=== PATIENT | male | born 1955 | race Caucasian/White ===

== ENCOUNTER 2018-06-12 11:35 | Emergency (ER) | payer SELFPAY ==
[2018-06-12 12:54] LABS: ADD MAN DIFF? NO
[2018-06-12 12:58] LABS: BASO # 0.1 x10^3/uL (0.0-0.2); BASO % 1 % (0-3); EOS % 0 % (0-3); HEMATOCRIT 45.8 % (39.0-53.0); HEMOGLOBIN 16.3 g/dL (13.0-17.5); LYMPH # 0.9 x10^3/uL (1.0-4.8); LYMPH % 12 % (24-48); MEAN CORPUSCULAR HEMOGLOBIN 35 pg (25-35); MEAN CORPUSCULAR HGB CONC 36 g/dL (31-37); MEAN CORPUSCULAR VOLUME 97 fL (79-100); MONO % 13 % (0-9); NEUT # 5.6 x10^3uL (1.8-7.7); NEUT % 75 % (31-73); PLATELET COUNT 168 x10^3/uL (140-400); RED BLOOD COUNT 4.74 x10^6/uL (4.30-5.70); RED CELL DISTRIBUTION WIDTH 15.3 % (11.5-14.5); WHITE BLOOD COUNT 7.5 x10^3/uL (4.0-11.0)
[2018-06-12] MEDS: LABETALOL 20 MG/4 ML DISP.SYRIN. IVP (12:59)
[2018-06-12 13:05] LABS: ANION GAP 9 (6-14); BLOOD UREA NITROGEN 18 mg/dL (8-26); CALCIUM 9.7 mg/dL (8.5-10.1); CARBON DIOXIDE 27 mmol/L (21-32); CHLORIDE 99 mmol/L (98-107); CREATININE 1.4 mg/dL (0.7-1.3); GFR 51.7; GLUCOSE 103 mg/dL (70-99); POTASSIUM 3.9 mmol/L (3.5-5.1); SODIUM 135 mmol/L (136-145)
[2018-06-12 13:06] LABS: MAGNESIUM 1.8 mg/dL (1.8-2.4)
[2018-06-12 13:13] LABS: TROPONINI < 0.017 ng/mL (0.000-0.055)
[2018-06-12 13:19] LABS: NT-PRO BNP 342 pg/mL (0-124)
[2018-06-12 13:19] LABS: CKMB INDEX 1.1 % (0-4); CKMB MASS 1.9 ng/mL (0.0-3.6); CREATINE KINASE 169 U/L (39-308)
== END 2018-06-12 13:57 | disposition home or self-care (01) ==
LOC: ER 11:35
DX: I10 Essential (primary) hypertension (principal); J20.9 Acute bronchitis, unspecified; J06.9 Acute upper respiratory infection, unspecified; F17.200 Nicotine dependence, unspecified, uncomplicated; F10.10 Alcohol abuse, uncomplicated; Y90.9 Presence of alcohol in blood, level not specified; Z90.89 Acquired absence of other organs; Z98.890 Other specified postprocedural states; Z88.8 Allergy status to other drugs, medicaments and biological substances; Z88.0 Allergy status to penicillin
CPT/HCPCS: 36415; 71045; 80048; 82553; 83735; 83880; 84484; 85025; 93005; 96374; 99285-25; J3490

== ENCOUNTER 2019-02-13 13:37 | Inpatient (IN) | payer SELFPAY ==
[2019-02-13] VITALS (9 sets, daily range): BP systolic 129–202; BP diastolic 82–112
[~2019-02-13] VITALS: Ht 175.3 cm; Wt 107.0 kg
[~2019-02-13 13:37] MED LIST: BENZ100C PO; BYSTOLIC5 MG PO; PRED50TA PO; VENTOLIN HFA18 GM INH
[2019-02-13] MEDS ORDERED: FUROSEMIDE 40 MG/4 ML VIAL. IVP ONE (13:45)
[2019-02-13] MEDS ORDERED: methylPREDNISolone SOD SUCC PF 125 MG/2 ML VIAL. IV ONE (13:45)
[2019-02-13] MEDS ORDERED: IPRATRPIUM/ALBUTEROL 0.5/2.5MG 3 ML NEBU. NEB ONE (13:45)
[2019-02-13] MEDS ORDERED: ADENOSINE 6 MG/2 ML VIAL. IV ONE ×3 (14:00→14:30)
[2019-02-13 14:13] LABS: BASO # 0.1 x10^3/uL (0.0-0.2); BASO % 1 % (0-3); EOS % 1 % (0-3); HEMATOCRIT 46.7 % (39.0-53.0); LYMPH # 1.2 x10^3/uL (1.0-4.8); LYMPH % 16 % (24-48); MEAN CORPUSCULAR HEMOGLOBIN 34 pg (25-35); MEAN CORPUSCULAR HGB CONC 34 g/dL (31-37); MEAN CORPUSCULAR VOLUME 98 fL (79-100); MONO # 0.7 x10^3/uL (0.0-1.1); MONO % 8 % (0-9); NEUT # 5.8 x10^3uL (1.8-7.7); NEUT % 74 % (31-73); PLATELET COUNT 230 x10^3/uL (140-400); RED BLOOD COUNT 4.78 x10^6/uL (4.30-5.70); RED CELL DISTRIBUTION WIDTH 15.2 % (11.5-14.5); WHITE BLOOD COUNT 7.8 x10^3/uL (4.0-11.0)
--- NOTE | 2019-02-13 14:21 | RAD ---
Single view of the chest. 02/13/2019 1:41 PM Indication: SHORTNESS OF AIR Comparison: Chest radiograph May 13, 2018 Findings: Diffuse interstitial coarsening is noted. This could represent viral or atypical infection. Interstitial edema is also possible. Heart is mildly enlarged there is central vascular congestion. No pneumothorax is seen. No significant effusion is identified. The bony thorax is grossly intact. IMPRESSION: Cardiomegaly and mild central vascular congestion. Diffuse interstitial coarsening is noted. Findings suggest pulmonary edema. An atypical or viral infectious process also possible. Electronically signed by: Aleks Redmond MD (02/13/2019 2:18 PM) [id number]
[2019-02-13 14:27] LABS: BASE EXCESS COOX -4 mmol/L (-3-3); HCO3 COOX 19 mmol/L (21-28); METHEMOGLOBIN 0.2 % (0.0-1.9); OXYHEMOGLOBIN 84.4 %; PCO2 COOX 30 mmHg (35-46); PO2 COOX 52 mmHg (65-108); SAT O2 COOX 89 % (92-99)
[2019-02-13 14:29] LABS: CREATININE 1.6 mg/dL (0.7-1.3); GFR 44.2; POTASSIUM 3.9 mmol/L (3.5-5.1)
--- NOTE | 2019-02-13 14:29 | PHYS DOC ---
Past Medical History Past Medical History: Hypertension Past Surgical History: Appendectomy Additional Past Surgical Histo: knee surgery Additional Information: more than 1 pack/day Alcohol Use: Heavy Additional Information: daily drinker Drug Use: None Adult General Chief Complaint Chief Complaint: SHORTNESS OF BREATH HPI HPI Patient is a 63 year old presented to ER today for evaluation of trouble breathing, he has this symptom for about 8 days. Symptoms get worse over the last few days, shortness of air is worse with exertion. Patient also has clear productive cough , no fever. Patient is a heavy smoker, no diagnose of COPD, no history of CAD, HE IS NOT ON ANY OXYGEN AT HOME. Review of Systems Review of Systems Constitutional: Denies fever or chills [] Eyes: Denies change in visual acuity, redness, or eye pain [] HENT: Denies nasal congestion or sore throat [] Respiratory: Positive for cough and shortness of breath [] Cardiovascular: No additional information not addressed in HPI [] GI: Denies abdominal pain, nausea, vomiting, bloody stools or diarrhea [] : Denies dysuria or hematuria [] Musculoskeletal: Denies back pain or joint pain [] Integument: Denies rash or skin lesions [] Neurologic: Denies headache, focal weakness or sensory changes [] Endocrine: Denies polyuria or polydipsia [] All other systems were reviewed and found to be within normal limits, except as documented in this note. Current Medications Current Medications Current Medications Medications (Trade) Dose Ordered Sig/Batsheva Start Time Stop Time Status Last Admin Dose Admin Acetaminophen (Tylenol) 650 mg PRN Q4HRS PRN 02/13/19 15:15 UNV Adenosine (Adenocard) 12 mg 1X ONCE 02/13/19 14:30 02/13/19 14:32 DC 02/13/19 14:34 12 MG Al Hydroxide/Mg Hydroxide (Mylanta Plus Xs) 30 ml PRN DAILY PRN 02/13/19 15:15 UNV Albuterol/ Ipratropium (Duoneb) 3 ml RTQID 02/13/19 16:00 02/14/19 15:59 UNV Bumetanide (Bumex) 2 mg BID 02/13/19 15:15 UNV Diltiazem HCl (Cardizem Iv Push) 20 mg 1X ONCE 02/13/19 14:30 02/13/19 14:32 DC 02/13/19 14:33 20 MG Diltiazem HCl 125 mg/Dextrose 125 ml @ 5 mls/hr CONT PRN 02/13/19 14:30 02/13/19 14:57 5 MLS/HR Docusate Sodium (Colace) 100 mg PRN BID PRN 02/13/19 15:15 UNV Enoxaparin Sodium (Lovenox 40mg Syringe) 40 mg Q24H 02/13/19 15:15 UNV Furosemide (Lasix) 40 mg 1X ONCE 02/13/19 13:45 02/13/19 13:46 DC 02/13/19 14:08 40 MG Guaifenesin (Robitussin) 200 mg PRN Q4HRS PRN 02/13/19 15:15 UNV Lorazepam (Ativan) 0.5 mg PRN Q4HRS PRN 02/13/19 15:15 UNV Methylprednisolone Sodium Succinate (SOLU-Medrol 125MG VIAL) 125 mg 1X ONCE 02/13/19 13:45 02/13/19 13:46 DC 02/13/19 14:03 125 MG Nitroglycerin (Nitro-Dur) 1 patch DAILY 02/14/19 09:00 UNV Ondansetron HCl (Zofran) 4 mg PRN Q8HRS PRN 02/13/19 15:15 02/14/19 15:14 UNV Sodium Chloride (Normal Saline Flush) 3 ml QSHIFT PRN 02/13/19 15:15 UNV Zolpidem Tartrate (Ambien) 5 mg PRN QHS PRN 02/13/19 15:15 UNV Allergies Allergies Allergies Coded Allergies Type Severity Reaction Last Updated Verified Penicillins Allergy Unknown hives 06/12/18 Yes lisinopril Allergy Unknown swelling of the tongue 06/12/18 Yes Physical Exam Physical Exam Constitutional: Well developed, well nourished, in moderate acute distress, non- toxic appearance. [] HENT: Normocephalic, atraumatic, bilateral external ears normal, oropharynx moist, no oral exudates, nose normal Eyes: PERRLA, EOMI, conjunctiva normal, no discharge. Bilateral periorbital edema. Neck: Normal range of motion, no tenderness, supple, no stridor. [] Cardiovascular: tachycardia, irregular,.. no murmur. Pitting edema in lower extremities. Lungs & Thorax: DECREASED AIR MOVEMENT THROUGH OUT. RALES DIFFUSELY. Abdomen: Bowel sounds normal, soft, no tenderness, no masses, no pulsatile masses. [] Skin: PALE, DIAPHORESIS. Back: No tenderness, no CVA tenderness. [] Extremities: No tenderness, no cyanosis, no clubbing, ROM intact, 4 PLUS PITTING EDEMA. Neurologic: Alert and oriented X 3, normal motor function, normal sensory function, no focal deficits noted. [] Psychologic: Affect normal, judgement normal, mood normal. [] Current Patient Data Vital Signs Vital Signs Date Time Temp Pulse Resp B/P (MAP) Pulse Ox O2 Delivery O2 Flow Rate FiO2 02/13/19 14:36 95 Nasal Cannula 4.0 02/13/19 14:33 142 187/118 02/13/19 13:47 98.1 36 98.1 Lab Values Laboratory Tests Test 02/13/19 13:50 02/13/19 14:20 White Blood Count 7.8 x10^3/uL (4.0-11.0) Red Blood Count 4.78 x10^6/uL (4.30-5.70) Hemoglobin 16.0 g/dL (13.0-17.5) Hematocrit 46.7 % (39.0-53.0) Mean Corpuscular Volume 98 fL (79-100) Mean Corpuscular Hemoglobin 34 pg (25-35) Mean Corpuscular Hemoglobin Concent 34 g/dL (31-37) Red Cell Distribution Width 15.2 % (11.5-14.5) H Platelet Count 230 x10^3/uL (140-400) Neutrophils (%) (Auto) 74 % (31-73) H Lymphocytes (%) (Auto) 16 % (24-48) L Monocytes (%) (Auto) 8 % (0-9) Eosinophils (%) (Auto) 1 % (0-3) Basophils (%) (Auto) 1 % (0-3) Neutrophils # (Auto) 5.8 x10^3uL (1.8-7.7) Lymphocytes # (Auto) 1.2 x10^3/uL (1.0-4.8) Monocytes # (Auto) 0.7 x10^3/uL (0.0-1.1) Eosinophils # (Auto) 0.0 x10^3/uL (0.0-0.7) Basophils # (Auto) 0.1 x10^3/uL (0.0-0.2) Sodium Level 138 mmol/L (136-145) Potassium Level 3.9 mmol/L (3.5-5.1) Chloride Level 99 mmol/L (98-107) Carbon Dioxide Level 23 mmol/L (21-32) Anion Gap 16 (6-14) H Blood Urea Nitrogen 21 mg/dL (8-26) Creatinine 1.6 mg/dL (0.7-1.3) H Estimated GFR (Cockcroft-Gault) 44.2 BUN/Creatinine Ratio 13 (6-20) Glucose Level 108 mg/dL (70-99) H Lactic Acid Level 2.1 mmol/L (0.4-2.0) H Calcium Level 9.0 mg/dL (8.5-10.1) Magnesium Level 1.9 mg/dL (1.8-2.4) Total Bilirubin 0.5 mg/dL (0.2-1.0) Aspartate Amino Transferase (AST) 23 U/L (15-37) Alanine Aminotransferase (ALT) 30 U/L (16-63) Alkaline Phosphatase 88 U/L (46-116) Creatine Kinase 225 U/L (39-308) Creatine Kinase MB (Mass) 4.2 ng/mL (0.0-3.6) H Creatine Kinase MB Relative Index 1.9 % (0-4) Troponin I Quantitative 0.021 ng/mL (0.000-0.055) FC-Abh-B-Type Natriuretic Peptide 1320 pg/mL (0-124) H Total Protein 7.6 g/dL (6.4-8.2) Albumin 3.5 g/dL (3.4-5.0) Albumin/Globulin Ratio 0.9 (1.0-1.7) L Urine Collection Type Void Urine Color Yellow Urine Clarity Clear Urine pH 6.0 Urine Specific [place] 1.010 Urine Protein >=300 mg/dL (NEG-TRACE) Urine Glucose (UA) Negative mg/dL (NEG) Urine Ketones (Stick) Negative mg/dL (NEG) Urine Blood Trace (NEG) Urine Nitrite Negative (NEG) Urine Bilirubin Negative (NEG) Urine Urobilinogen Dipstick 1.0 mg/dL (0.2 mg/dL) Urine Leukocyte Esterase Negative (NEG) Urine RBC 1-2 /HPF (0-2) Urine WBC 0 /HPF (0-4) Urine Squamous Epithelial Cells Few /LPF Urine Bacteria 0 /HPF (0-FEW) O2 Saturation 89 % (92-99) L Arterial Blood pH 7.43 (7.35-7.45) Arterial Blood pCO2 at Patient Temp 30 mmHg (35-46) L Arterial Blood pO2 at Patient Temp 52 mmHg (65-108) L Arterial Blood HCO3 19 mmol/L (21-28) L Arterial Blood Base Excess -4 mmol/L (-3-3) L Oxyhemoglobin 84.4 % Methemoglobin 0.2 % (0.0-1.9) Carbon Monoxide, Quantitative 4.7 % (0.0-1.9) H FiO2 28 Laboratory Tests 02/13/19 13:50 Laboratory Tests 02/13/19 13:[address] EKG AT 1345, RATE OF 143 BPM, APPEARED TO BE IN SVT. Patient was given 6 MG ADENOSINE IVP, no response. He was again given 12 mg Adenosine, was not responsive. 2nd EKG AT 1420, RATE OF 157 BPM, AFIB WITH RVR. Patient was started on Cardizem 20 IVP then drip. Radiology/Procedures Radiology/Procedures [][facility] [address] [place] [address] IMAGING REPORT Signed PATIENT: TAJ JAMES ACCOUNT: [id number] : 1955 LOCATION: ER AGE: 63 SEX: M EXAM STATUS: REG ER ORD. PHYSICIAN: ARABELLA MONTILLA DO REASON: soa PROCEDURE: PORTABLE CHEST 1V Single view of the chest. 02/13/2019 1:41 PM Indication: SHORTNESS OF AIR Comparison: Chest radiograph May 13, 2018 Findings: Diffuse interstitial coarsening is noted. This could represent viral or atypical infection. Interstitial edema is also possible. Heart is mildly enlarged there is central vascular congestion. No pneumothorax is seen. No significant effusion is identified. The bony thorax is grossly intact. IMPRESSION: Cardiomegaly and mild central vascular congestion. Diffuse interstitial coarsening is noted. Findings suggest pulmonary edema. An atypical or viral infectious process also possible. Electronically signed by: Aleks Lenz MD (02/13/2019 2:18 PM) [facility] DICTATED and SIGNED BY: ALEKS LENZ MD DATE: 02/13/19 1418 Course & Med Decision Making Course & Med Decision Making Pertinent Labs and Imaging studies reviewed. (See chart for details) [] Dragon Disclaimer Dragon Disclaimer This electronic medical record was generated, in whole or in part, using a voice recognition dictation system. Departure Departure Impression: Primary Impression: Acute pulmonary edema Additional Impressions: Atrial fibrillation with RVR HTN (hypertension) COPD mixed type Disposition: 09 ADMITTED INPATIENT Admitting Physician: Other (dr. Cam Lynn) Condition: STABLE Referrals: NO PCP (PCP) Problem Qualifiers ARABELLA MONTILLA DO Feb 13, 2019 14:29
[2019-02-13] MEDS ORDERED: dilTIAZem IV PUSH 25 MG/5 ML VIAL IVP ONE (14:30)
[2019-02-13 14:34] LABS: BILIRUBIN,URINE NEGATIVE (NEG); CLARITY,URINE CLEAR; COLOR,URINE YELLOW; NITRITE,URINE NEGATIVE (NEG); PROTEIN,URINE >=300 mg/dL (NEG-TRACE)
[2019-02-13 14:35] LABS: ALBUMIN 3.5 g/dL (3.4-5.0); ALBUMIN/GLOBULIN RATIO 0.9 (1.0-1.7); TOTAL BILIRUBIN 0.5 mg/dL (0.2-1.0); TOTAL PROTEIN 7.6 g/dL (6.4-8.2)
[2019-02-13 14:44] LABS: BACTERIA,URINE 0 /HPF (0-FEW); SQUAMOUS EPITHELIAL CELL,UR FEW /LPF; WBC,URINE 0 /HPF (0-4)
[2019-02-13] MEDS: dilTIAZem INJ 125 MG in IV DEXTROSE 5% 100ML 100 ML IV PRN ×2 (14:57→23:08)
[2019-02-13] MEDS ORDERED: ONDANSETRON PF 4 MG/2 ML VIAL. IV PRN ×2 (15:15)
[2019-02-13] MEDS ORDERED: guaiFENesin ORAL 200 MG/10 ML LIQUID. PO PRN (15:15)
[2019-02-13] MEDS ORDERED: DOCUSATE SODIUM 100 MG CAPSULE. PO PRN (15:15)
[2019-02-13] MEDS ORDERED: LORazepam 0.5 MG TABLET PO PRN (15:15)
[2019-02-13] MEDS ORDERED: ZOLPIDEM 5 MG TABLET. PO PRN (15:15)
[2019-02-13] MEDS ORDERED: MAG HYDROX/ALUMINUM HYD/SIMETH 30 ML ORAL.SUSP PO PRN (15:15)
[2019-02-13] MEDS ORDERED: 0.9 % SODIUM CHLORIDE 10 ML DISP.SYRIN. IV PRN (15:15)
[2019-02-13] MEDS ORDERED: ACETAMINOPHEN 325 MG TABLET. PO PRN (15:15)
[2019-02-13 15:47] LABS: BARBITURATES NEG (NEG); BENZODIAZEPINES NEG (NEG); CANNABINOIDS NEG (NEG); COCAINE NEG (NEG); METHADONE NEG (NEG); OPIATES NEG (NEG); PHENCYCLIDINE NEG (NEG)
[2019-02-13 15:53] LABS: AMPHETAMINE/METHAMPHETAMINE NEG (NEG)
[2019-02-13 15:53] LABS: CHOLESTEROL/HDL RATIO 4.5
[2019-02-13] MEDS: IPRATRPIUM/ALBUTEROL 0.5/2.5MG 3 ML NEBU. NEB SCH ×3 (15:53→23:15)
[2019-02-13] MEDS ORDERED: IPRATRPIUM/ALBUTEROL 0.5/2.5MG 3 ML NEBU. NEB SCH ×3 (16:00→20:00)
[2019-02-13] MEDS ORDERED: ENOXAPARIN 40 MG/0.4 ML SYRINGE. SQ SCH (16:00)
[2019-02-13] MEDS ORDERED: HEPARIN for IV BOLUS 10,000 UNIT/10 ML VIAL. IV PRN (16:30)
[2019-02-13] MEDS ORDERED: LABETALOL 20 MG/4 ML DISP.SYRIN. IVP PRN (16:30)
--- NOTE | 2019-02-13 16:34 | PDOC1 ---
History and Physical Date of Admission Date of Admission 02/13/2019 Identification/Chief Complaint Chief Complaint I couldn't breathe Problems: (1) Acute pulmonary edema Source Source: Chart review, Patient History of Present Illness History of Present Illness Patient is a 63-year-old gentleman obese who was in his usual state of health until approximately one week prior to his admission when he started complaining off increased cough with production of clear sputum. The patient has not had sick contacts at home denies any pleurisy. He has a long-standing history of smoking at least 45 years and he probably smokes around 2 packs a day of cigarettes. The patient has not quit smoking were attempted to during his lifetime. He denies fevers no headaches no cold-like symptoms no sneezing no nausea vomiting no epigastric pain no palpitations have been reported by the patient. Today he was unable to catch his breath reason why he was brought to the emergency department for evaluation. His evaluation in the emergency department the patient presented increased work of breathing his workup evaluation yielded pulmonary edema picture which prompted Lasix therapy at the time of my note the patient is able to speak in full sentences but he definitely has increased work of breathing. Patient also may have a component of obstructive sleep apnea given his body habitus when asked about snoring his family members concurred that he can be heard all throughout the house. He denies daytime sleepiness. The patient denies paroxysmal nocturnal dyspnea nor orthopnea has been reported no increase in salt nevertheless the patient has not been compliant to his antihypertensive regimen since he has not seen his primary care physician quite some time. He came in also with hypertensive urgency which may aggravate most likely tricuspid regurgitation given the pronounced murmur auscultated on physical exam. He will be admitted for further evaluation treatment all of his concerns were addressed to the best of my abilities plan of care explained in detail to the patient and family members at bedside. Past Medical History Cardiovascular: HTN Pulmonary: COPD Family History Family History: Other (reviewed and found noncontributory to the present) Social History Smoke: # pack years (60 at least) ALCOHOL: occassional Drugs: None Current Problem List Problem List Problems Medical Problems: (1) Acute pulmonary edema Status: Acute (2) Atrial fibrillation with RVR Status: Acute (3) COPD mixed type Status: Acute (4) HTN (hypertension) Status: Acute Current Medications Current Medications Current Medications Medications (Trade) Dose Ordered Sig/Batsheva Start Time Stop Time Status Last Admin Dose Admin Acetaminophen (Tylenol) 650 mg PRN Q4HRS PRN 02/13/19 15:15 Adenosine (Adenocard) 12 mg 1X ONCE 02/13/19 14:30 02/13/19 14:32 DC 02/13/19 14:34 12 MG Al Hydroxide/Mg Hydroxide (Mylanta Plus Xs) 30 ml PRN DAILY PRN 02/13/19 15:15 UNV Albuterol/ Ipratropium (Duoneb) 3 ml RTQID 02/13/19 16:00 02/13/19 16:00 DC Bumetanide (Bumex) 2 mg BID 02/13/19 15:15 Diltiazem HCl (Cardizem Iv Push) 20 mg 1X ONCE 02/13/19 14:30 02/13/19 14:32 DC 02/13/19 14:33 20 MG Diltiazem HCl 125 mg/Dextrose 125 ml @ 5 mls/hr CONT PRN 02/13/19 14:30 02/13/19 14:57 5 MLS/HR Docusate Sodium (Colace) 100 mg PRN BID PRN 02/13/19 15:15 UNV Enoxaparin Sodium (Lovenox 40mg Syringe) 40 mg Q24H 02/13/19 16:00 Furosemide (Lasix) 40 mg 1X ONCE 02/13/19 13:45 02/13/19 13:46 DC 02/13/19 14:08 40 MG Guaifenesin (Robitussin) 200 mg PRN Q4HRS PRN 02/13/19 15:15 UNV Lorazepam (Ativan) 0.5 mg PRN Q4HRS PRN 02/13/19 15:15 UNV Methylprednisolone Sodium Succinate (SOLU-Medrol 125MG VIAL) 125 mg 1X ONCE 02/13/19 13:45 02/13/19 13:46 DC 02/13/19 14:03 125 MG Nitroglycerin (Nitro-Dur) 1 patch DAILY 02/14/19 09:00 Ondansetron HCl (Zofran) 4 mg PRN Q8HRS PRN 02/13/19 15:15 02/14/19 15:14 UNV Sodium Chloride (Normal Saline Flush) 3 ml QSHIFT PRN 02/13/19 15:15 Zolpidem Tartrate (Ambien) 5 mg PRN QHS PRN 02/13/19 15:15 Allergies Allergies Allergies Coded Allergies Type Severity Reaction Last Updated Verified Penicillins Allergy Unknown hives 06/12/18 Yes lisinopril Allergy Unknown swelling of the tongue 06/12/18 Yes ROS Review of System CONSTITUTIONAL: No fever or chills EYES: No recent changes SKIN: No rash or itching CARDIOVASCULAR: No chest pain, syncope, palpitations, or edema RESPIRATORY: + SOB and cough GASTROINTESTINAL: No nausea, vomiting or abdominal pain NEUROLOGICAL: No headaches or weakness ENDOCRINE: No cold or heat intolerance GENITOURINARY: No urgency or frequency of urination MUSCULOSKELETAL: No back pain or joint pain LYMPHATICS: No enlarged lymph nodes PSYCHIATRIC: No anxiety or depression Physical Exam Physical Exam GEN.: Mild distress. Alert and oriented. HEENT: Head is normocephalic, atraumatic NECK: Supple. LUNGS: coarse breath sounds bilaterally HEART: RRR, S1, S2 present. Peripheral pulses intact, holosystolic murmur best heard over the 5th intercostal space left parasternal border ABDOMEN: Soft, nontender. Positive bowel sounds. OBese EXTREMITIES: Without any cyanosis. NEUROLOGIC: Normal speech, normal tone PSYCHIATRIC: Normal affect, normal mood. SKIN: No ulcerations Vitals Vitals Vital Signs Date Time Temp Pulse Resp B/P (MAP) Pulse Ox O2 Delivery O2 Flow Rate FiO2 02/13/19 15:57 95 Nasal Cannula 4.0 02/13/19 14:33 142 187/118 02/13/19 13:47 98.1 36 98.1 Labs Labs Laboratory Tests Test 02/13/19 13:50 02/13/19 14:20 White Blood Count 7.8 x10^3/uL (4.0-11.0) Red Blood Count 4.78 x10^6/uL (4.30-5.70) Hemoglobin 16.0 g/dL (13.0-17.5) Hematocrit 46.7 % (39.0-53.0) Mean Corpuscular Volume 98 fL (79-100) Mean Corpuscular Hemoglobin 34 pg (25-35) Mean Corpuscular Hemoglobin Concent 34 g/dL (31-37) Red Cell Distribution Width 15.2 % (11.5-14.5) Platelet Count 230 x10^3/uL (140-400) Neutrophils (%) (Auto) 74 % (31-73) Lymphocytes (%) (Auto) 16 % (24-48) Monocytes (%) (Auto) 8 % (0-9) Eosinophils (%) (Auto) 1 % (0-3) Basophils (%) (Auto) 1 % (0-3) Neutrophils # (Auto) 5.8 x10^3uL (1.8-7.7) Lymphocytes # (Auto) 1.2 x10^3/uL (1.0-4.8) Monocytes # (Auto) 0.7 x10^3/uL (0.0-1.1) Eosinophils # (Auto) 0.0 x10^3/uL (0.0-0.7) Basophils # (Auto) 0.1 x10^3/uL (0.0-0.2) Sodium Level 138 mmol/L (136-145) Potassium Level 3.9 mmol/L (3.5-5.1) Chloride Level 99 mmol/L (98-107) Carbon Dioxide Level 23 mmol/L (21-32) Anion Gap 16 (6-14) Blood Urea Nitrogen 21 mg/dL (8-26) Creatinine 1.6 mg/dL (0.7-1.3) Estimated GFR (Cockcroft-Gault) 44.2 BUN/Creatinine Ratio 13 (6-20) Glucose Level 108 mg/dL (70-99) Lactic Acid Level 2.1 mmol/L (0.4-2.0) Calcium Level 9.0 mg/dL (8.5-10.1) Magnesium Level 1.9 mg/dL (1.8-2.4) Total Bilirubin 0.5 mg/dL (0.2-1.0) Aspartate Amino Transf (AST/SGOT) 23 U/L (15-37) Alanine Aminotransferase (ALT/SGPT) 30 U/L (16-63) Alkaline Phosphatase 88 U/L (46-116) Creatine Kinase 225 U/L (39-308) Creatine Kinase MB (Mass) 4.2 ng/mL (0.0-3.6) Creatine Kinase MB Relative Index 1.9 % (0-4) Troponin I Quantitative 0.021 ng/mL (0.000-0.055) [id number]-[id number]-Type Natriuretic Peptide 1320 pg/mL (0-124) Total Protein 7.6 g/dL (6.4-8.2) Albumin 3.5 g/dL (3.4-5.0) Albumin/Globulin Ratio 0.9 (1.0-1.7) Triglycerides Level 104 mg/dL (0-150) Cholesterol Level 220 mg/dL (0-200) LDL Cholesterol, Calculated 150 mg/dL (0-100) VLDL Cholesterol, Calculated 21 mg/dL (0-40) Non-HDL Cholesterol Calculated 171 mg/dL (0-129) HDL Cholesterol 49 mg/dL (40-60) Cholesterol/HDL Ratio 4.5 Urine Collection Type Void Urine Color Yellow Urine Clarity Clear Urine pH 6.0 Urine Specific [place] 1.010 Urine Protein >=300 mg/dL (NEG-TRACE) Urine Glucose (UA) Negative mg/dL (NEG) Urine Ketones (Stick) Negative mg/dL (NEG) Urine Blood Trace (NEG) Urine Nitrite Negative (NEG) Urine Bilirubin Negative (NEG) Urine Urobilinogen Dipstick 1.0 mg/dL (0.2 mg/dL) Urine Leukocyte Esterase Negative (NEG) Urine RBC 1-2 /HPF (0-2) Urine WBC 0 /HPF (0-4) Urine Squamous Epithelial Cells Few /LPF Urine Bacteria 0 /HPF (0-FEW) O2 Saturation 89 % (92-99) Arterial Blood pH 7.43 (7.35-7.45) Arterial Blood pCO2 at Patient Temp 30 mmHg (35-46) Arterial Blood pO2 at Patient Temp 52 mmHg (65-108) Arterial Blood HCO3 19 mmol/L (21-28) Arterial Blood Base Excess -4 mmol/L (-3-3) Oxyhemoglobin 84.4 % Methemoglobin 0.2 % (0.0-1.9) Carbon Monoxide, Quantitative 4.7 % (0.0-1.9) FiO2 28 Urine Opiates Screen Neg (NEG) Urine Methadone Screen Neg (NEG) Urine Barbiturates Neg (NEG) Urine Phencyclidine Screen Neg (NEG) Urine Amphetamine/Methamphetamine Neg (NEG) Urine Benzodiazepines Screen Neg (NEG) Urine Cocaine Screen Neg (NEG) Urine Cannabinoids Screen Neg (NEG) Urine Ethyl Alcohol Neg (NEG) Laboratory Tests Test 02/13/19 13:50 02/13/19 14:20 White Blood Count 7.8 x10^3/uL (4.0-11.0) Red Blood Count 4.78 x10^6/uL (4.30-5.70) Hemoglobin 16.0 g/dL (13.0-17.5) Hematocrit 46.7 % (39.0-53.0) Mean Corpuscular Volume 98 fL (79-100) Mean Corpuscular Hemoglobin 34 pg (25-35) Mean Corpuscular Hemoglobin Concent 34 g/dL (31-37) Red Cell Distribution Width 15.2 % (11.5-14.5) Platelet Count 230 x10^3/uL (140-400) Neutrophils (%) (Auto) 74 % (31-73) Lymphocytes (%) (Auto) 16 % (24-48) Monocytes (%) (Auto) 8 % (0-9) Eosinophils (%) (Auto) 1 % (0-3) Basophils (%) (Auto) 1 % (0-3) Neutrophils # (Auto) 5.8 x10^3uL (1.8-7.7) Lymphocytes # (Auto) 1.2 x10^3/uL (1.0-4.8) Monocytes # (Auto) 0.7 x10^3/uL (0.0-1.1) Eosinophils # (Auto) 0.0 x10^3/uL (0.0-0.7) Basophils # (Auto) 0.1 x10^3/uL (0.0-0.2) Sodium Level 138 mmol/L (136-145) Potassium Level 3.9 mmol/L (3.5-5.1) Chloride Level 99 mmol/L (98-107) Carbon Dioxide Level 23 mmol/L (21-32) Anion Gap 16 (6-14) Blood Urea Nitrogen 21 mg/dL (8-26) Creatinine 1.6 mg/dL (0.7-1.3) Estimated GFR (Cockcroft-Gault) 44.2 BUN/Creatinine Ratio 13 (6-20) Glucose Level 108 mg/dL (70-99) Lactic Acid Level 2.1 mmol/L (0.4-2.0) Calcium Level 9.0 mg/dL (8.5-10.1) Magnesium Level 1.9 mg/dL (1.8-2.4) Total Bilirubin 0.5 mg/dL (0.2-1.0) Aspartate Amino Transf (AST/SGOT) 23 U/L (15-37) Alanine Aminotransferase (ALT/SGPT) 30 U/L (16-63) Alkaline Phosphatase 88 U/L (46-116) Creatine Kinase 225 U/L (39-308) Creatine Kinase MB (Mass) 4.2 ng/mL (0.0-3.6) Creatine Kinase MB Relative Index 1.9 % (0-4) Troponin I Quantitative 0.021 ng/mL (0.000-0.055) YW-Vul-B-Type Natriuretic Peptide 1320 pg/mL (0-124) Total Protein 7.6 g/dL (6.4-8.2) Albumin 3.5 g/dL (3.4-5.0) Albumin/Globulin Ratio 0.9 (1.0-1.7) Triglycerides Level 104 mg/dL (0-150) Cholesterol Level 220 mg/dL (0-200) LDL Cholesterol, Calculated 150 mg/dL (0-100) VLDL Cholesterol, Calculated 21 mg/dL (0-40) Non-HDL Cholesterol Calculated 171 mg/dL (0-129) HDL Cholesterol 49 mg/dL (40-60) Cholesterol/HDL Ratio 4.5 Urine Collection Type Void Urine Color Yellow Urine Clarity Clear Urine pH 6.0 Urine Specific [place] 1.010 Urine Protein >=300 mg/dL (NEG-TRACE) Urine Glucose (UA) Negative mg/dL (NEG) Urine Ketones (Stick) Negative mg/dL (NEG) Urine Blood Trace (NEG) Urine Nitrite Negative (NEG) Urine Bilirubin Negative (NEG) Urine Urobilinogen Dipstick 1.0 mg/dL (0.2 mg/dL) Urine Leukocyte Esterase Negative (NEG) Urine RBC 1-2 /HPF (0-2) Urine WBC 0 /HPF (0-4) Urine Squamous Epithelial Cells Few /LPF Urine Bacteria 0 /HPF (0-FEW) O2 Saturation 89 % (92-99) Arterial Blood pH 7.43 (7.35-7.45) Arterial Blood pCO2 at Patient Temp 30 mmHg (35-46) Arterial Blood pO2 at Patient Temp 52 mmHg (65-108) Arterial Blood HCO3 19 mmol/L (21-28) Arterial Blood Base Excess -4 mmol/L (-3-3) Oxyhemoglobin 84.4 % Methemoglobin 0.2 % (0.0-1.9) Carbon Monoxide, Quantitative 4.7 % (0.0-1.9) FiO2 28 Urine Opiates Screen Neg (NEG) Urine Methadone Screen Neg (NEG) Urine Barbiturates Neg (NEG) Urine Phencyclidine Screen Neg (NEG) Urine Amphetamine/Methamphetamine Neg (NEG) Urine Benzodiazepines Screen Neg (NEG) Urine Cocaine Screen Neg (NEG) Urine Cannabinoids Screen Neg (NEG) Urine Ethyl Alcohol Neg (NEG) VTE Prophylaxis Ordered VTE Prophylaxis Devices: No VTE Pharmacological Prophylaxi: Yes Assessment/Plan Assessment/Plan Acute pulmonary edema Atrial fibrillation with rapid ventricular response Acute hypoxemic respiratory failure secondary to the above COPD secondary to tobacco abuse Tobacco abuse counseling has been done less than 10 minutes Obesity with a BMI of 34 Suspect obesity hypoventilation syndrome as well Suspect diastolic dysfunction Dyslipidemia Plan: Admit patient to the cardiac floor and institute congestive heart failure protocol Daily weights Strict I and nose We'll start bumex therapy control BP patient allergic to jon inhibitor will start beta birgit Low kira vasc score will order ECHO will consult cardiology in the am DVT prophylaxis:MOOSE Arana MD Feb 13, 2019 16:34
--- NOTE | 2019-02-13 16:37 | PDOC2 ---
CARDIAC CONSULT DATE OF CONSULT Date of Consult DATE: 02/13/19 TIME: 1530 REASON FOR CONSULT Reason for Consult: AFIB REFERRING PHYSICIAN Referring Physician: Raul SOURCE Source: Chart review, Patient HISTORY OF PRESENT ILLNESS HISTORY OF PRESENT ILLNESS This is a pleasant 63 yo male admitted for complains of SOA. Denies any leg pain or significant swelling on the legs nor recent long distance travel or chest pain but in the last 6 days he has been getting increasingly SOA particularly with exertion. He has been feeling some palpitations but not significnat. Denies any frequent dizziness or passing out. He does not see a regular physician and the last time he was seen by specialist is a visit to ED last yr for bronchitis. No prior cardiac or pulmonary workup. Reports no nausea or vomiting or diarrhea. No hx of bleeding or cancer. He does smoke about 2 ppd for >40 yrs and has been drinking heavily for a long time noting it as whiskey 1.5 pints a night with last drink last night. The only med he takes is for his knee arthritis ibuprofen 800 mg qam. No other meds taken. Upon admission he was noted with CHF and AFIB RVR. No hx of falls, injury and arrhythmias. No hx of CVA or VTE. Denies PND nor orthopnea, sleeps side lying. Positive for insomnia. No recent fever or chills. PAST MEDICAL HISTORY Past Medical History OA, chronic alcoholism and tobaccoism PAST SURGICAL HISTORY Past Surgical History: Arthroscopy (bilateral remotely) FAMILY HISTORY Family History: Coronary Artery Disease (father and mother) SOCIAL HISTORY Smoke: 2 packs per day (>40 yrs) ALCOHOL: heavy (1.5 pints per day ) Drugs: None Lives: with Family CURRENT MEDICATIONS CURRENT MEDICATIONS Current Medications Medications (Trade) Dose Ordered Sig/Batsheva Route PRN Reason Start Time Stop Time Status Last Admin Dose Admin Albuterol/ Ipratropium (Duoneb) 3 ml 1X ONCE NEB 02/13/19 13:45 02/13/19 13:46 DC 02/13/19 14:33 Methylprednisolone Sodium Succinate (SOLU-Medrol 125MG VIAL) 125 mg 1X ONCE IV 02/13/19 13:45 02/13/19 13:46 DC 02/13/19 14:03 Furosemide (Lasix) 40 mg 1X ONCE IVP 02/13/19 13:45 02/13/19 13:46 DC 02/13/19 14:08 Adenosine (Adenocard) 6 mg 1X ONCE IV 02/13/19 14:00 02/13/19 14:01 DC 02/13/19 14:04 Diltiazem HCl (Cardizem Iv Push) 20 mg 1X ONCE IVP 02/13/19 14:30 02/13/19 14:32 DC 02/13/19 14:33 Diltiazem HCl 125 mg/Dextrose 125 ml @ 5 mls/hr CONT PRN IV SEE I/O RECORD 02/13/19 14:30 02/13/19 14:57 Adenosine (Adenocard) 12 mg 1X ONCE IV 02/13/19 14:30 02/13/19 14:32 DC 02/13/19 14:34 Albuterol/ Ipratropium (Duoneb) 3 ml Q4H NEB 02/13/19 15:15 UNV 02/13/19 15:53 ALLERGIES ALLERGIES: Coded Allergies: Penicillins (Verified Allergy, Unknown, hives, 06/12/18) lisinopril (Verified Allergy, Unknown, swelling of the tongue, 06/12/18) ROS Review of System 14 point ROS evaluated with pertinent positives noted per HPI PHYSICAL EXAM General: Alert, Oriented X3, Cooperative, mild distress HEENT: Atraumatic, Mucous membr. moist/pink Lungs: Other (basilar crackles) Heart: Other (AFIB RVR; diffuse systolic murmur loudest at apex and PAL border 3/6) Abdomen: Soft, No tenderness, Other (truncal obesity) Extremities: No cyanosis, Other (trace to 1+ bilateral LE pitting edema) Skin: No breakdown, No significant lesion Neuro: Normal speech, Sensation intact, Other (fine arm tremors) Psych/Mental Status: Mental status NL, Mood NL MUSCULOSKELETAL: Osteoarthritic changes both hands VITALS VITALS Vital Signs Date Time Temp Pulse Resp B/P (MAP) Pulse Ox O2 Delivery O2 Flow Rate FiO2 02/13/19 15:57 95 Nasal Cannula 4.0 02/13/19 14:33 142 187/118 02/13/19 13:47 98.1 36 98.1 LABS Lab: Laboratory Tests Test 02/13/19 13:50 02/13/19 14:20 White Blood Count 7.8 x10^3/uL (4.0-11.0) Red Blood Count 4.78 x10^6/uL (4.30-5.70) Hemoglobin 16.0 g/dL (13.0-17.5) Hematocrit 46.7 % (39.0-53.0) Mean Corpuscular Volume 98 fL (79-100) Mean Corpuscular Hemoglobin 34 pg (25-35) Mean Corpuscular Hemoglobin Concent 34 g/dL (31-37) Red Cell Distribution Width 15.2 % (11.5-14.5) Platelet Count 230 x10^3/uL (140-400) Neutrophils (%) (Auto) 74 % (31-73) Lymphocytes (%) (Auto) 16 % (24-48) Monocytes (%) (Auto) 8 % (0-9) Eosinophils (%) (Auto) 1 % (0-3) Basophils (%) (Auto) 1 % (0-3) Neutrophils # (Auto) 5.8 x10^3uL (1.8-7.7) Lymphocytes # (Auto) 1.2 x10^3/uL (1.0-4.8) Monocytes # (Auto) 0.7 x10^3/uL (0.0-1.1) Eosinophils # (Auto) 0.0 x10^3/uL (0.0-0.7) Basophils # (Auto) 0.1 x10^3/uL (0.0-0.2) Sodium Level 138 mmol/L (136-145) Potassium Level 3.9 mmol/L (3.5-5.1) Chloride Level 99 mmol/L (98-107) Carbon Dioxide Level 23 mmol/L (21-32) Anion Gap 16 (6-14) Blood Urea Nitrogen 21 mg/dL (8-26) Creatinine 1.6 mg/dL (0.7-1.3) Estimated GFR (Cockcroft-Gault) 44.2 BUN/Creatinine Ratio 13 (6-20) Glucose Level 108 mg/dL (70-99) Lactic Acid Level 2.1 mmol/L (0.4-2.0) Calcium Level 9.0 mg/dL (8.5-10.1) Magnesium Level 1.9 mg/dL (1.8-2.4) Total Bilirubin 0.5 mg/dL (0.2-1.0) Aspartate Amino Transf (AST/SGOT) 23 U/L (15-37) Alanine Aminotransferase (ALT/SGPT) 30 U/L (16-63) Alkaline Phosphatase 88 U/L (46-116) Creatine Kinase 225 U/L (39-308) Creatine Kinase MB (Mass) 4.2 ng/mL (0.0-3.6) Creatine Kinase MB Relative Index 1.9 % (0-4) Troponin I Quantitative 0.021 ng/mL (0.000-0.055) OA-Xij-P-Type Natriuretic Peptide 1320 pg/mL (0-124) Total Protein 7.6 g/dL (6.4-8.2) Albumin 3.5 g/dL (3.4-5.0) Albumin/Globulin Ratio 0.9 (1.0-1.7) Triglycerides Level 104 mg/dL (0-150) Cholesterol Level 220 mg/dL (0-200) LDL Cholesterol, Calculated 150 mg/dL (0-100) VLDL Cholesterol, Calculated 21 mg/dL (0-40) Non-HDL Cholesterol Calculated 171 mg/dL (0-129) HDL Cholesterol 49 mg/dL (40-60) Cholesterol/HDL Ratio 4.5 Urine Collection Type Void Urine Color Yellow Urine Clarity Clear Urine pH 6.0 Urine Specific [place] 1.010 Urine Protein >=300 mg/dL (NEG-TRACE) Urine Glucose (UA) Negative mg/dL (NEG) Urine Ketones (Stick) Negative mg/dL (NEG) Urine Blood Trace (NEG) Urine Nitrite Negative (NEG) Urine Bilirubin Negative (NEG) Urine Urobilinogen Dipstick 1.0 mg/dL (0.2 mg/dL) Urine Leukocyte Esterase Negative (NEG) Urine RBC 1-2 /HPF (0-2) Urine WBC 0 /HPF (0-4) Urine Squamous Epithelial Cells Few /LPF Urine Bacteria 0 /HPF (0-FEW) O2 Saturation 89 % (92-99) Arterial Blood pH 7.43 (7.35-7.45) Arterial Blood pCO2 at Patient Temp 30 mmHg (35-46) Arterial Blood pO2 at Patient Temp 52 mmHg (65-108) Arterial Blood HCO3 19 mmol/L (21-28) Arterial Blood Base Excess -4 mmol/L (-3-3) Oxyhemoglobin 84.4 % Methemoglobin 0.2 % (0.0-1.9) Carbon Monoxide, Quantitative 4.7 % (0.0-1.9) FiO2 28 Urine Opiates Screen Neg (NEG) Urine Methadone Screen Neg (NEG) Urine Barbiturates Neg (NEG) Urine Phencyclidine Screen Neg (NEG) Urine Amphetamine/Methamphetamine Neg (NEG) Urine Benzodiazepines Screen Neg (NEG) Urine Cocaine Screen Neg (NEG) Urine Cannabinoids Screen Neg (NEG) Urine Ethyl Alcohol Neg (NEG) ASSESSMENT/PLAN ASSESSMENT/PLAN 1. AFIB RVR: with noted RBBB 2. Acute on chronic likely systolic/diastolic dysfunction 3. Morbid obesity 4. Suspect COPD with heavy tobaccoism 5. Heavy chronic ETOH use: 1.5 pints per day 6. Malignant HTN 7. Suspect CKD 3: noted with macroalbuminuria Recommendations 1. Trend troponin 2. Continue cardizem drip titrate per HR. May need to use dig prn 3. Start NTG paste. Labetolol IV PRN 4. Bumex therapy. 5. TTE, TSH, lipids. ASA 6. Heparin drip to start for stroke prevention, will eval PO transition tomorrow. 7. CIWA protocol per PCP. 8. smoking cessation and will detox for ETOH. JOHN TAN MANAGER CONSUMER Feb 13, 2019 16:37
[2019-02-13] MEDS: BUMETANIDE 1 MG/4 ML VIAL. IV SCH ×2 (18:13→20:28)
[2019-02-13] MEDS: PANTOPRAZOLE 40 MG TABLET.DR. PO SCH (18:13)
[2019-02-13] MEDS: ASPIRIN ENTERIC COATED 81 MG TABLET.DR. PO SCH (18:13)
[2019-02-13] MEDS: NITROGLYCERIN OINT 1 GM PACKET. TP SCH (18:14)
[2019-02-13] MEDS: ATORVASTATIN CALCIUM 20 MG TABLET PO SCH (20:28)
[2019-02-13] MEDS ORDERED: oxyCODONE/APAP 7.5/325 1 TAB TABLET PO PRN ×2 (21:15)
[2019-02-13] MEDS ORDERED: MORPHINE SULFATE 2 MG/ML VIAL. IV PRN (21:15)
[2019-02-13] MEDS ORDERED: DIGOXIN IV 500 MCG/2 ML AMPUL. IV ONE (22:00)
[2019-02-14] VITALS (10 sets, daily range): BP systolic 120–154; BP diastolic 64–88
[2019-02-14 00:14] LABS: HEMOGLOBIN A1C 5.6 % (4.8-5.6)
[2019-02-14] MEDS: IPRATRPIUM/ALBUTEROL 0.5/2.5MG 3 ML NEBU. NEB SCH ×6 (03:15→23:15)
[2019-02-14] MEDS: NITROGLYCERIN OINT 1 GM PACKET. TP SCH ×3 (05:22→12:00)
--- NOTE | 2019-02-14 08:03 | EKG ---
[facility] [address] [place] [address] Test Date: 2019-02-13 Test Time: 14:20:29 Pat Name: TAJ JAMES Department: Room: 205 1 Gender: M Heel Gummer: : 1955 Requested By: MOOSE MADRID Order Number: [id number] Reading MD: Alfonso Marquez MD Measurements Intervals [place] Rate: 157 P: SD: QRS: 99 QRSD: 138 T: 5 QT: 288 QTc: 472 Interpretive Statements PROBABLE ATRIAL FIBRILLATION RBBB NON-SPECIFIC ST/T CHANGES Electronically Signed On 02-15-2019 9:10:32 CDT by Alfonso Marquez MD
--- NOTE | 2019-02-14 08:03 | EKG ---
[facility] [address] [place] [address] Test Date: 2019-02-13 Test Time: 13:44:57 Pat Name: TAJ JAMES Department: Room: 205 1 Gender: M Sourcing Analyst: : 1955 Requested By: ARABELLA MONTILLA Order Number: [id number] Reading MD: Alfonso Marquez MD Measurements Intervals [place] Rate: 142 P: -140 ND: 116 QRS: 90 QRSD: 142 T: 24 QT: 286 QTc: 446 Interpretive Statements SUPRAVENTRICULAR TACHYCARDIA RIGHT BUNDLE BRANCH BLOCK RVH WITH REPOLARIZATION ABNORMALITY NON SPECIFIC ST-T ABNORMALITY (ELEVATION) ABNORMAL ECG Electronically Signed On 02-15-2019 9:10:01 CDT by Alfonso Marquez MD
--- NOTE | 2019-02-14 08:03 | EKG ---
[facility] [address] [place] [address] Test Date: 2019-02-13 Test Time: 15:04:18 Pat Name: TAJ JAMES Department: Room: 205 1 Gender: M Lamination Builder: : 1955 Requested By: MOOSE MADRID Order Number: [id number] Reading MD: Alfonso Marquez MD Measurements Intervals [place] Rate: 135 P: MT: QRS: -152 QRSD: 138 T: 4 QT: 320 QTc: 484 Interpretive Statements ATRIAL FIB./FLUTTER WITH RAPID VENTRICULAR RESPONSE ABNORMAL RIGHT SUPERIOR AXIS DEVIATION RIGHT BUNDLE BRANCH BLOCK RVH WITH REPOLARIZATION ABNORMALITY QRS(T) CONTOUR ABNORMALITY CONSIDER INFERIOR MYOCARDIAL DAMAGE ABNORMAL ECG Electronically Signed On 02-15-2019 9:10:42 CDT by Alfonso Marquez MD
[2019-02-14] MEDS: PANTOPRAZOLE 40 MG TABLET.DR. PO SCH (08:54)
[2019-02-14] MEDS: NICOTINE 21MG PATCH. TD PRN (08:54)
[2019-02-14] MEDS: ASPIRIN ENTERIC COATED 81 MG TABLET.DR. PO SCH (08:56)
[2019-02-14] MEDS ORDERED: DIGOXIN IV 500 MCG/2 ML AMPUL. IV SCH (09:00)
[2019-02-14] MEDS ORDERED: FUROSEMIDE 40 MG/4 ML VIAL. IVP SCH (09:00)
[2019-02-14] MEDS ORDERED: NITROGLYCERIN 0.2MG/HR PATCH. TD SCH (09:00)
[2019-02-14 09:22] LABS: CALCIUM 8.3 mg/dL (8.5-10.1); CREATININE 2.2 mg/dL (0.7-1.3); GFR 30.6; MAGNESIUM 1.5 mg/dL (1.8-2.4); POTASSIUM 3.5 mmol/L (3.5-5.1)
[2019-02-14] MEDS: HEPARIN 25,000UTS/500ML PREMIX 500 ML IV PRN (09:56)
--- NOTE | 2019-02-14 11:18 | CARD ---
MR#: [id number] Date of Study: 02/14/2019 Ordering Physician: MOOSE MADRID, Referring Physician: MOOSE MADRID Tech: Kiara Andre [facility] APPROVED REPORT EXAM: Two-dimensional and M-mode echocardiogram with Doppler and color Doppler. Other Information Quality : AverageHR: 90bpm Rhythm : Atrial FibrillationTechnically limited study due to body habitus and smoking. INDICATION Edema 2D DIMENSIONS RVDd4.2 (2.9-3.5cm)Left Atrium(2D)5.0 (1.6-4.0cm) IVSd1.4 (0.7-1.1cm)Aortic Root(2D)3.3 (2.0-3.7cm) LVDd5.0 (3.9-5.9cm)LVOT Diameter2.0 (1.8-2.4cm) PWd1.1 (0.7-1.1cm)LVDs3.7 (2.5-4.0cm) FS (%) 27.6 %SV64.2 ml M-Mode DIMENSIONS Left Atrium(MM)5.33 (2.5-4.0cm)Aortic Root3.51 (2.2-3.7cm) Aortic Valve AoV Peak Jim.209.6cm/sAoV VTI30.6cm AO Peak GR.17.6mmHgLVOT VTI 16.62cm AO Mean GR.10mmHgAVA (VTI)1.70cm2 Mitral Valve MV E Qspdvckv712.2cm/sMV E Peak Gr.92mmHg MV DECEL [id number] A Cqywyzmi38.4cm/s MV E Mean Gr.7mmHgE/A Ratio1.5 MV A [id number] LEFT VENTRICLE The left ventricle is normal size. There is mild concentric left ventricular hypertrophy. The left ve ntricular systolic function is normal and the ejection fraction is within normal range. The LV ejecti on fraction is 55-60%. There is normal LV segmental wall motion. Transmitral Doppler flow pattern is abnormal. RIGHT VENTRICLE The right ventricle is normal size. There is normal right ventricular wall thickness. The right ventr icular systolic function is normal. ATRIA The left atrium is mildly dilated. The right atrium is mildly dilated. The interatrial septum is inta ct with no evidence for an atrial septal defect or patent foramen ovale as noted on 2-D or Doppler im aging. AORTIC VALVE The aortic valve is mildly to moderately calcified but opens well. The aortic valve is trileaflet. Do ppler and Color Flow revealed no significant aortic regurgitation. There is no significant aortic alissa vular stenosis. MITRAL VALVE The mitral valve is thickened but opens well. There is no evidence of mitral valve prolapse. There is mild mitral valve stenosis with a mean gradient of of 7 mmHg but visually valve opens well. Doppler and Color-flow revealed mild to moderate mitral regurgitation. TRICUSPID VALVE The tricuspid valve is normal in structure and function. Doppler and Color Flow revealed trace tricus pid valve regurgitation. There is no tricuspid valve prolapse or vegetation. There is no tricuspid va lve stenosis. PULMONIC VALVE The pulmonic valve is not well visualized. GREAT VESSELS The aortic root is normal in size. The ascending aorta is normal in size. The IVC is normal in size a nd collapses >50% with inspiration. PERICARDIAL EFFUSION There is no evidence of significant pericardial effusion. Critical Notification Critical Value: No <Conclusion> The left ventricle is normal size. The left ventricular systolic function is normal and the ejection fraction is within normal range. The LV ejection fraction is 55-60%. There is mild concentric left ventricular hypertrophy. There is no significant aortic valvular stenosis. Doppler and Color Flow revealed no significant aortic regurgitation. Doppler and Color-flow revealed mild to moderate mitral regurgitation. Doppler and Color Flow revealed trace tricuspid valve regurgitation. Signed by : Teja Wilson MD Electronically Approved : 02/14/2019 11:18:21
--- NOTE | 2019-02-14 11:58 | PDOC ---
CARDIO Progress Notes Date and Time Date of Service 02/14/2019 Time of Evaluation 1140 Subjective Subjective: No Chest Pain, No shortness of breath, No Palpitations Vitals Vitals Vital Signs Date Time Temp Pulse Resp B/P (MAP) Pulse Ox O2 Delivery O2 Flow Rate FiO2 02/14/19 08:15 93 Room Air 02/14/19 07:00 97.7 81 18 129/70 (89) 2.0 97.7 Weight Weight [ ] Input and Output Intake and Output Intake and Output 02/14/19 06:59 Intake Total 1700 ml Output Total 6850 ml Balance -5150 ml Intake Oral 1700 ml Output Urine Total 6850 ml Laboratory Labs Laboratory Tests Test 02/13/19 13:50 02/13/19 14:20 02/13/19 18:10 02/14/19 08:43 White Blood Count 7.8 x10^3/uL (4.0-11.0) Red Blood Count 4.78 x10^6/uL (4.30-5.70) Hemoglobin 16.0 g/dL (13.0-17.5) Hematocrit 46.7 % (39.0-53.0) Mean Corpuscular Volume 98 fL (79-100) Mean Corpuscular Hemoglobin 34 pg (25-35) Mean Corpuscular Hemoglobin Concent 34 g/dL (31-37) Red Cell Distribution Width 15.2 % (11.5-14.5) Platelet Count 230 x10^3/uL (140-400) Neutrophils (%) (Auto) 74 % (31-73) Lymphocytes (%) (Auto) 16 % (24-48) Monocytes (%) (Auto) 8 % (0-9) Eosinophils (%) (Auto) 1 % (0-3) Basophils (%) (Auto) 1 % (0-3) Neutrophils # (Auto) 5.8 x10^3uL (1.8-7.7) Lymphocytes # (Auto) 1.2 x10^3/uL (1.0-4.8) Monocytes # (Auto) 0.7 x10^3/uL (0.0-1.1) Eosinophils # (Auto) 0.0 x10^3/uL (0.0-0.7) Basophils # (Auto) 0.1 x10^3/uL (0.0-0.2) Sodium Level 138 mmol/L (136-145) 130 mmol/L (136-145) Potassium Level 3.9 mmol/L (3.5-5.1) 3.5 mmol/L (3.5-5.1) Chloride Level 99 mmol/L (98-107) 92 mmol/L (98-107) Carbon Dioxide Level 23 mmol/L (21-32) 26 mmol/L (21-32) Anion Gap 16 (6-14) 12 (6-14) Blood Urea Nitrogen 21 mg/dL (8-26) 30 mg/dL (8-26) Creatinine 1.6 mg/dL (0.7-1.3) 2.2 mg/dL (0.7-1.3) Estimated GFR (Cockcroft-Gault) 44.2 30.6 BUN/Creatinine Ratio 13 (6-20) Glucose Level 108 mg/dL (70-99) 205 mg/dL (70-99) Hemoglobin A1c 5.6 % (4.8-5.6) Lactic Acid Level 2.1 mmol/L (0.4-2.0) 1.8 mmol/L (0.4-2.0) Calcium Level 9.0 mg/dL (8.5-10.1) 8.3 mg/dL (8.5-10.1) Magnesium Level 1.9 mg/dL (1.8-2.4) 1.5 mg/dL (1.8-2.4) Total Bilirubin 0.5 mg/dL (0.2-1.0) Aspartate Amino Transf (AST/SGOT) 23 U/L (15-37) Alanine Aminotransferase (ALT/SGPT) 30 U/L (16-63) Alkaline Phosphatase 88 U/L (46-116) Creatine Kinase 225 U/L (39-308) Creatine Kinase MB (Mass) 4.2 ng/mL (0.0-3.6) Creatine Kinase MB Relative Index 1.9 % (0-4) Troponin I Quantitative 0.021 ng/mL (0.000-0.055) QJ-Rra-Y-Type Natriuretic Peptide 1320 pg/mL (0-124) Total Protein 7.6 g/dL (6.4-8.2) Albumin 3.5 g/dL (3.4-5.0) Albumin/Globulin Ratio 0.9 (1.0-1.7) Triglycerides Level 104 mg/dL (0-150) Cholesterol Level 220 mg/dL (0-200) LDL Cholesterol, Calculated 150 mg/dL (0-100) VLDL Cholesterol, Calculated 21 mg/dL (0-40) Non-HDL Cholesterol Calculated 171 mg/dL (0-129) HDL Cholesterol 49 mg/dL (40-60) Cholesterol/HDL Ratio 4.5 Thyroid Stimulating Hormone (TSH) 1.758 uIU/mL (0.358-3.74) Urine Collection Type Void Urine Color Yellow Urine Clarity Clear Urine pH 6.0 Urine Specific [place] 1.010 Urine Protein >=300 mg/dL (NEG-TRACE) Urine Glucose (UA) Negative mg/dL (NEG) Urine Ketones (Stick) Negative mg/dL (NEG) Urine Blood Trace (NEG) Urine Nitrite Negative (NEG) Urine Bilirubin Negative (NEG) Urine Urobilinogen Dipstick 1.0 mg/dL (0.2 mg/dL) Urine Leukocyte Esterase Negative (NEG) Urine RBC 1-2 /HPF (0-2) Urine WBC 0 /HPF (0-4) Urine Squamous Epithelial Cells Few /LPF Urine Bacteria 0 /HPF (0-FEW) O2 Saturation 89 % (92-99) Arterial Blood pH 7.43 (7.35-7.45) Arterial Blood pCO2 at Patient Temp 30 mmHg (35-46) Arterial Blood pO2 at Patient Temp 52 mmHg (65-108) Arterial Blood HCO3 19 mmol/L (21-28) Arterial Blood Base Excess -4 mmol/L (-3-3) Oxyhemoglobin 84.4 % Methemoglobin 0.2 % (0.0-1.9) Carbon Monoxide, Quantitative 4.7 % (0.0-1.9) FiO2 28 Urine Opiates Screen Neg (NEG) Urine Methadone Screen Neg (NEG) Urine Barbiturates Neg (NEG) Urine Phencyclidine Screen Neg (NEG) Urine Amphetamine/Methamphetamine Neg (NEG) Urine Benzodiazepines Screen Neg (NEG) Urine Cocaine Screen Neg (NEG) Urine Cannabinoids Screen Neg (NEG) Urine Ethyl Alcohol Neg (NEG) Heparin Anti-Xa Act, Unfractionated < 0.10 IU/mL (0.30-0.70) Physical Exam HEENT: Neck Supple W Full Motion Chest: Symmetric LUNGS: Other (diminished bases) Heart: irregularly irregular (AFIB) Abdomen: Soft N/T, Other Extremities: No Calf Tenderness, Other (trace LE edema ) Neurology: alert, oriented, follow commands Assessment Assessment 1. AFIB RVR: New, with noted RBBB, multiple triggers as noted below 2. Acute diastolic CHF likely on chronic: EF and WM nml, no significant valvular issues 3. Morbid obesity 4. Suspect COPD with heavy tobaccoism 5. Heavy chronic ETOH use: 1.5 pints per day 6. Malignant HTN: controlled 7. Suspect CKD 3: noted with macroalbuminuria 8. HLP Recommendations 1. No ETOH withdrawal symptoms, pt verbalized stopping in the past "cold turkey " Discussed need of anticoagulation and interaction with coumadin.vs ASA With above info he is high risk for bleed with [id number]. Willingness to stop ETOH but at this time will DC heparin and start on ECASA 325 mg for stroke prevention If deemed noted avenue for coumadin therapy is doable as an outpt with good compliance and ETOH cessation then outpt cardioversion would be considered if remains on AFIB. 2. Dig x1, DC cardizem drip and NTG paste and start on 300 mg cardizem CD. If renal function is stable by tomorrow then addition of ACEi or ARB is an option pending BP trend. 3. DC lasix after AM dose. Labetolol IV PRN 4. low dose statin. TG elevated partly due to ETOH. 5. CIWA protocol per PCP. 6. smoking cessation and will detox for ETOH. 7. Anticipate DC tomorrow 8. Discussed significantly regarding lifestyle modification. Pt currently does not have any health insurance making him high risk for nonadherence. CM to see pt for disability and outreach referral for PCP. 9. Encouraged to follow up in office in 4 weeks. JOHN TAN TORCH STRAIGHTENER Feb 14, 2019 11:58
[2019-02-14] MEDS ORDERED: LORazepam 1 MG TABLET PO SCH (12:30)
--- NOTE | 2019-02-14 12:40 | NUR ---
SS following up with discharge planning. SS reviewed pt chart. Pt is self pay pt. Pt is from home with family and reports history of alcohol abuse and cigarette smoking. Referral received for alcohol use. SS contacted the PAT team for assessment and evaluation. [facility]CF[facility] following for self pay status.
[2019-02-14] MEDS ORDERED: DIGOXIN IV 500 MCG/2 ML AMPUL. IV ONE (12:45)
[2019-02-14] MEDS ORDERED: MAGNESIUM SULFATE 2GM 50 ML IV ONE (12:45)
[2019-02-14] MEDS: ASPIRIN ENTERIC COATED 325 MG TABLET.DR. PO SCH (12:49)
[2019-02-14] MEDS: chlordiazePOXIDE HCL 25 MG CAPSULE PO SCH ×3 (13:30→23:44)
[2019-02-14] MEDS: MULTIVIT INFUSN,ADULT 4,VIT K 10 ML, THIAMINE INJ 100 MG, FOLIC ACID INJ 1 MG in IV NOR... IV SCH (14:37)
[2019-02-14] MEDS: ANTI-COAG MONITOR BY PHARMACY. MC PRN (15:17)
[2019-02-14 15:37] LABS: PROTHROMBIN TIME PATIENT 13.4 SEC (11.7-14.0)
--- NOTE | 2019-02-14 18:06 | PDOC ---
PROGRESS NOTES Chief Complaint Chief Complaint Acute pulmonary edema Atrial fibrillation with rapid ventricular response Acute hypoxemic respiratory failure secondary to the above COPD secondary to tobacco abuse Tobacco abuse counseling has been done less than 10 minutes Obesity with a BMI of 34 Suspect obesity hypoventilation syndrome as well Suspect diastolic dysfunction Dyslipidemia History of alcohol abuse, will monitor for signs of withdrawal and start CIWA protocol Plan: willl follow recommendations from cardiology recommendations greatly appreciated currently on heparin for clot prevention reassess in the am History of Present Illness History of Present Illness Overall feeling better,, rate better compared to admission. NO chest pain no shortness of breath today Vitals Vitals Vital Signs Date Time Temp Pulse Resp B/P (MAP) Pulse Ox O2 Delivery O2 Flow Rate FiO2 02/14/19 16:09 Room Air 02/14/19 15:00 97.8 95 18 132/74 (93) 95 2.0 97.8 Physical Exam General: Alert, Oriented X3, Cooperative, mild distress Heart: Other (AFIB RVR; diffuse systolic murmur loudest at apex and PAL border 3/6) Abdomen: Soft, No tenderness, Other (truncal obesity) Extremities: No cyanosis, Other (trace to 1+ bilateral LE pitting edema) Skin: No breakdown, No significant lesion Labs LABS Laboratory Tests Test 02/13/19 18:10 02/14/19 08:43 02/14/19 15:50 Lactic Acid Level 1.8 mmol/L (0.4-2.0) Prothrombin Time 13.4 SEC (11.7-14.0) Prothromb Time International Ratio 1.1 (0.8-1.1) Heparin Anti-Xa Act, Unfractionated < 0.10 IU/mL (0.30-0.70) 0.20 IU/mL (0.30-0.70) Sodium Level 130 mmol/L (136-145) Potassium Level 3.5 mmol/L (3.5-5.1) Chloride Level 92 mmol/L (98-107) Carbon Dioxide Level 26 mmol/L (21-32) Anion Gap 12 (6-14) Blood Urea Nitrogen 30 mg/dL (8-26) Creatinine 2.2 mg/dL (0.7-1.3) Estimated GFR (Cockcroft-Gault) 30.6 Glucose Level 205 mg/dL (70-99) Calcium Level 8.3 mg/dL (8.5-10.1) Magnesium Level 1.5 mg/dL (1.8-2.4) Review of Systems Review of Systems pertinent as per hpi otherwise negative Assessment and Plan Assessmemt and Plan Problems Medical Problems: (1) Acute pulmonary edema Status: Acute (2) Atrial fibrillation with RVR Status: Acute (3) COPD mixed type Status: Acute (4) HTN (hypertension) Status: Acute Comment Review of Relevant I have reviewed the following items alaina (where applicable) has been applied. Labs Laboratory Tests Test 02/13/19 13:50 02/13/19 14:20 02/13/19 18:10 02/14/19 08:43 White Blood Count 7.8 x10^3/uL (4.0-11.0) Red Blood Count 4.78 x10^6/uL (4.30-5.70) Hemoglobin 16.0 g/dL (13.0-17.5) Hematocrit 46.7 % (39.0-53.0) Mean Corpuscular Volume 98 fL (79-100) Mean Corpuscular Hemoglobin 34 pg (25-35) Mean Corpuscular Hemoglobin Concent 34 g/dL (31-37) Red Cell Distribution Width 15.2 % (11.5-14.5) Platelet Count 230 x10^3/uL (140-400) Neutrophils (%) (Auto) 74 % (31-73) Lymphocytes (%) (Auto) 16 % (24-48) Monocytes (%) (Auto) 8 % (0-9) Eosinophils (%) (Auto) 1 % (0-3) Basophils (%) (Auto) 1 % (0-3) Neutrophils # (Auto) 5.8 x10^3uL (1.8-7.7) Lymphocytes # (Auto) 1.2 x10^3/uL (1.0-4.8) Monocytes # (Auto) 0.7 x10^3/uL (0.0-1.1) Eosinophils # (Auto) 0.0 x10^3/uL (0.0-0.7) Basophils # (Auto) 0.1 x10^3/uL (0.0-0.2) Sodium Level 138 mmol/L (136-145) 130 mmol/L (136-145) Potassium Level 3.9 mmol/L (3.5-5.1) 3.5 mmol/L (3.5-5.1) Chloride Level 99 mmol/L (98-107) 92 mmol/L (98-107) Carbon Dioxide Level 23 mmol/L (21-32) 26 mmol/L (21-32) Anion Gap 16 (6-14) 12 (6-14) Blood Urea Nitrogen 21 mg/dL (8-26) 30 mg/dL (8-26) Creatinine 1.6 mg/dL (0.7-1.3) 2.2 mg/dL (0.7-1.3) Estimated GFR (Cockcroft-Gault) 44.2 30.6 BUN/Creatinine Ratio 13 (6-20) Glucose Level 108 mg/dL (70-99) 205 mg/dL (70-99) Hemoglobin A1c 5.6 % (4.8-5.6) Lactic Acid Level 2.1 mmol/L (0.4-2.0) 1.8 mmol/L (0.4-2.0) Calcium Level 9.0 mg/dL (8.5-10.1) 8.3 mg/dL (8.5-10.1) Magnesium Level 1.9 mg/dL (1.8-2.4) 1.5 mg/dL (1.8-2.4) Total Bilirubin 0.5 mg/dL (0.2-1.0) Aspartate Amino Transf (AST/SGOT) 23 U/L (15-37) Alanine Aminotransferase (ALT/SGPT) 30 U/L (16-63) Alkaline Phosphatase 88 U/L (46-116) Creatine Kinase 225 U/L (39-308) Creatine Kinase MB (Mass) 4.2 ng/mL (0.0-3.6) Creatine Kinase MB Relative Index 1.9 % (0-4) Troponin I Quantitative 0.021 ng/mL (0.000-0.055) [id number] Natriuretic Peptide 1320 pg/mL (0-124) Total Protein 7.6 g/dL (6.4-8.2) Albumin 3.5 g/dL (3.4-5.0) Albumin/Globulin Ratio 0.9 (1.0-1.7) Triglycerides Level 104 mg/dL (0-150) Cholesterol Level 220 mg/dL (0-200) LDL Cholesterol, Calculated 150 mg/dL (0-100) VLDL Cholesterol, Calculated 21 mg/dL (0-40) Non-HDL Cholesterol Calculated 171 mg/dL (0-129) HDL Cholesterol 49 mg/dL (40-60) Cholesterol/HDL Ratio 4.5 Thyroid Stimulating Hormone (TSH) 1.758 uIU/mL (0.358-3.74) Urine Collection Type Void Urine Color Yellow Urine Clarity Clear Urine pH 6.0 Urine Specific [place] 1.010 Urine Protein >=300 mg/dL (NEG-TRACE) Urine Glucose (UA) Negative mg/dL (NEG) Urine Ketones (Stick) Negative mg/dL (NEG) Urine Blood Trace (NEG) Urine Nitrite Negative (NEG) Urine Bilirubin Negative (NEG) Urine Urobilinogen Dipstick 1.0 mg/dL (0.2 mg/dL) Urine Leukocyte Esterase Negative (NEG) Urine RBC 1-2 /HPF (0-2) Urine WBC 0 /HPF (0-4) Urine Squamous Epithelial Cells Few /LPF Urine Bacteria 0 /HPF (0-FEW) O2 Saturation 89 % (92-99) Arterial Blood pH 7.43 (7.35-7.45) Arterial Blood pCO2 at Patient Temp 30 mmHg (35-46) Arterial Blood pO2 at Patient Temp 52 mmHg (65-108) Arterial Blood HCO3 19 mmol/L (21-28) Arterial Blood Base Excess -4 mmol/L (-3-3) Oxyhemoglobin 84.4 % Methemoglobin 0.2 % (0.0-1.9) Carbon Monoxide, Quantitative 4.7 % (0.0-1.9) FiO2 28 Urine Opiates Screen Neg (NEG) Urine Methadone Screen Neg (NEG) Urine Barbiturates Neg (NEG) Urine Phencyclidine Screen Neg (NEG) Urine Amphetamine/Methamphetamine Neg (NEG) Urine Benzodiazepines Screen Neg (NEG) Urine Cocaine Screen Neg (NEG) Urine Cannabinoids Screen Neg (NEG) Urine Ethyl Alcohol Neg (NEG) Prothrombin Time 13.4 SEC (11.7-14.0) Prothromb Time International Ratio 1.1 (0.8-1.1) Heparin Anti-Xa Act, Unfractionated < 0.10 IU/mL (0.30-0.70) Test 02/14/19 15:50 Heparin Anti-Xa Act, Unfractionated 0.20 IU/mL (0.30-0.70) Laboratory Tests Test 02/13/19 18:10 02/14/19 08:43 02/14/19 15:50 Lactic Acid Level 1.8 mmol/L (0.4-2.0) Prothrombin Time 13.4 SEC (11.7-14.0) Prothromb Time International Ratio 1.1 (0.8-1.1) Heparin Anti-Xa Act, Unfractionated < 0.10 IU/mL (0.30-0.70) 0.20 IU/mL (0.30-0.70) Sodium Level 130 mmol/L (136-145) Potassium Level 3.5 mmol/L (3.5-5.1) Chloride Level 92 mmol/L (98-107) Carbon Dioxide Level 26 mmol/L (21-32) Anion Gap 12 (6-14) Blood Urea Nitrogen 30 mg/dL (8-26) Creatinine 2.2 mg/dL (0.7-1.3) Estimated GFR (Cockcroft-Gault) 30.6 Glucose Level 205 mg/dL (70-99) Calcium Level 8.3 mg/dL (8.5-10.1) Magnesium Level 1.5 mg/dL (1.8-2.4) Microbiology 02/13/19 Blood Culture - Preliminary, Resulted NO GROWTH AFTER 1 DAY Medications Current Medications Albuterol/ Ipratropium (Duoneb) 3 ml 1X ONCE NEB Last administered on at 14:33; Start 02/13/19 at 13:45; Stop 02/13/19 at 13:46; Status DC Methylprednisolone Sodium Succinate (SOLU-Medrol 125MG VIAL) 125 mg 1X ONCE IV Last administered on 02/13/19at 14:03; Start 02/13/19 at 13:45; Stop 02/13/19 at 13:46; Status DC Furosemide (Lasix) 40 mg 1X ONCE IVP Last administered on 02/13/19at 14:08; Start 02/13/19 at 13:45; Stop 02/13/19 at 13:46; Status DC Adenosine (Adenocard) 6 mg 1X ONCE IV Last administered on 02/13/19at 14:04; Start 02/13/19 at 14:00; Stop 02/13/19 at 14:01; Status DC Adenosine (Adenocard) 6 mg STK-MED ONCE IV ; Start 02/13/19 at 14:13; Stop at 14:15; Status DC Diltiazem HCl (Cardizem Iv Push) 20 mg 1X ONCE IVP Last administered on at 14:33; Start 02/13/19 at 14:30; Stop 02/13/19 at 14:32; Status DC Diltiazem HCl 125 mg/Dextrose 125 ml @ 5 mls/hr CONT PRN IV SEE I/O RECORD Last administered on 02/13/19at 23:08; Start 02/13/19 at 14:30; Stop 02/14/19 at 12: 00; Status DC Adenosine (Adenocard) 12 mg 1X ONCE IV Last administered on 02/13/19at 14:34; Start 02/13/19 at 14:30; Stop 02/13/19 at 14:32; Status DC Nitroglycerin (Nitro-Dur) 1 patch DAILY TD ; Start 02/14/19 at 09:00; Stop at 09:00; Status DC Bumetanide (Bumex) 2 mg BID IV Last administered on 02/13/19at 20:28; Start at 15:15; Stop 02/14/19 at 07:52; Status DC Enoxaparin Sodium (Lovenox 40mg Syringe) 40 mg Q24H SQ Last administered on 02/13at 18:14; Start 02/13/19 at 16:00; Stop 02/14/19 at 07:50; Status DC Sodium Chloride (Normal Saline Flush) 3 ml QSHIFT PRN IV AFTER MEDS AND BLOOD DRAWS; Start 02/13/19 at 15:15 Ondansetron HCl (Zofran) 4 mg PRN Q4HRS PRN IV NAUSEA/VOMITING; Start 02/13/19 at 15:15 Zolpidem Tartrate (Ambien) 5 mg PRN QHS PRN PO INSOMNIA Last administered on 02/13/19at 22:00; Start 02/13/19 at 15:15 Acetaminophen (Tylenol) 650 mg PRN Q4HRS PRN PO TEMP OVER 100.4F OR MILD PAIN; Start 02/13/19 at 15:15 Al Hydroxide/Mg Hydroxide (Mylanta Plus Xs) 30 ml PRN DAILY PRN PO HEARTBURN / GAS; Start 02/13/19 at 15:15 Docusate Sodium (Colace) 100 mg PRN BID PRN PO CONSTIPATION; Start 02/13/19 at 15:15 Albuterol/ Ipratropium (Duoneb) 3 ml Q4H NEB Last administered on 02/14/19at 16: 08; Start 02/13/19 at 15:15 Guaifenesin (Robitussin) 200 mg PRN Q4HRS PRN PO COUGH; Start 02/13/19 at 15:15 Lorazepam (Ativan) 0.5 mg PRN Q4HRS PRN PO ANXIETY / AGITATION Last administered on 02/14/19at 12:49; Start 02/13/19 at 15:15 Ondansetron HCl (Zofran) 4 mg PRN Q8HRS PRN IV NAUSEA/VOMITING; Start 02/13/19 at 15:15; Stop 02/14/19 at 09:53; Status DC Albuterol/ Ipratropium (Duoneb) 3 ml RTQID NEB ; Start 02/13/19 at 16:00; Stop at 16:00; Status DC Albuterol/ Ipratropium (Duoneb) 3 ml BID NEB ; Start 02/13/19 at 20:00; Status Cancel Albuterol/ Ipratropium (Duoneb) 3 ml Q4HRS NEB ; Start 02/13/19 at 20:00; Status Cancel Nitroglycerin (Nitro-Bid Oint) 1 inch Q6HRS TP Last administered on 02/14/19at 05 :22; Start 02/13/19 at 17:00; Stop 02/14/19 at 12:40; Status DC Labetalol HCl (Normodyne Iv Push) 20 mg PRN Q2HRS PRN IVP ELEVATED BP, SEE COMMENTS; Start 02/13/19 at 16:30 Heparin Sodium/ Dextrose 500 ml @ 20 mls/hr CONT PRN IV SEE I/O RECORD Last administered on 02/14/19at 09:56; Start 02/13/19 at 16:30 Heparin Sodium (Porcine) (Heparin Sodium) 2,700 unit PRN Q6HRS PRN IV FOR UFH LEVEL LESS THAN 0.2 Last administered on 02/14/19 09:54; Start 02/13/19 at 16:30 Atorvastatin Calcium (Lipitor) 20 mg QHS PO Last administered on 02/13/19 20:28 ; Start 02/13/19 at 21:00 Aspirin (Ecotrin) 81 mg DAILYWBKFT PO Last administered on 02/14/19 08:56; Start 02/13/19 at 17:00; Stop 02/14/19 at 12:00; Status DC Pantoprazole Sodium (Protonix) 40 mg DAILY PO Last administered on 02/14/19 08: 54; Start 02/13/19 at 16:30 Nicotine (Nicoderm Cq 21mg) 1 patch PRN DAILY PRN TD SMOKING CESSATION Last administered on 02/14/19 08:54; Start 02/13/19 at 19:45 Morphine Sulfate (Morphine Sulfate) 2 mg PRN Q4HRS PRN IV SEVERE PAIN; Start at 21:15 Digoxin (Lanoxin) 250 mcg DAILY IV ; Start 02/14/19 at 09:00; Status Cancel Oxycodone/ Acetaminophen (Percocet 7.5/ 325) 1 tab PRN Q4HRS PRN PO MODERATE PAIN Last administered on 02/13/19 22:00; Start 02/13/19 at 21:15 Oxycodone/ Acetaminophen (Percocet 7.5/ 325) 2 tab PRN Q4HRS PRN PO SEVERE PAIN Last administered on 02/13/19 22:00; Start 02/13/19 at 21:15 Digoxin (Lanoxin) 250 mcg 1X ONCE IV Last administered on 02/13/19 22:01; Start 02/13/19 at 22:00; Stop 02/13/19 at 22:01; Status DC Furosemide (Lasix) 40 mg DAILY IVP Last administered on 02/14/19 08:56; Start 02/14/19 at 09:00; Stop 02/14/19 at 14:21; Status DC Diltiazem HCl (Cardizem 24hr Cd) 300 mg DAILY PO Last administered on 02/14/19 12:49; Start 02/14/19 at 13:00 Aspirin (Ecotrin) 325 mg DAILYWBKFT PO Last administered on 02/14/19 12:49; Start 02/14/19 at 13:00 Magnesium Sulfate 50 ml @ 25 mls/hr 1X ONCE IV Last administered on 02/14/19at 14:37; Start 02/14/19 at 12:45; Stop 02/14/19 at 14:44; Status DC Digoxin (Lanoxin) 250 mcg 1X ONCE IV Last administered on 02/14/19 12:50; Start 02/14/19 at 12:45; Stop 02/14/19 at 12:46; Status DC Multivitamins 10 ml/Thiamine HCl 100 mg/Folic Acid 1 mg/Sodium Chloride 1,011.2 ml @ 100 mls/ hr DAILY IV Last administered on 02/14/19at 14:37; Start 02/14/19 at 13:30; Stop 02/18/19 at 19:07 Lorazepam (Ativan) 2 mg Q6H PO ; Start 02/14/19 at 12:30; Stop 02/14/19 at 12:50; Status DC Chlordiazepoxide (Librium) 25 mg Q6HRS PO ; Start 02/14/19 at 13:30; Stop at 18:01 Info (Anti-Coagulation Monitoring By Pharmacy) 1 each PRN DAILY PRN MC SEE COMMENTS Last administered on 02/14/19at 15:17; Start 02/14/19 at 15:30 Active Scripts Active Bystolic (Nebivolol) 5 Mg Tablet 5 Mg PO DAILY Tessalon Perle (Benzonatate) 100 Mg Capsule 1 Cap PO TID Prednisone 50 Mg Tablet 1 Tab PO DAILY Ventolin Hfa Inhaler (Albuterol Sulfate) 18 Gm Hfa.aer.ad 2 Puff INH Q4HRS Vitals/I & O Vital Sign - Last 24 Hours 02/13/19 02/13/19 02/13/19 02/13/19 18:14 18:30 18:54 19:05 Temp 98.2 98.2 Pulse 112 104 66 Resp 20 B/P (MAP) 158/90 162/94 (116) 162/94 (116) Pulse Ox 95 O2 Delivery Nasal Cannula Nasal Cannula O2 Flow Rate 3.0 2.0 02/13/19 02/13/19 02/13/19 02/13/19 19:54 20:00 20:20 20:54 Pulse 138 124 B/P (MAP) 173/110 (131) 202/110 (140) Pulse Ox 95 O2 Delivery Nasal Cannula Nasal Cannula O2 Flow Rate 4.0 4.0 02/13/19 02/13/19 02/13/19 02/13/19 21:54 22:00 22:01 22:45 Temp 98.1 98.1 Pulse 116 115 89 Resp 20 B/P (MAP) 151/88 (109) 151/88 152/87 (108) Pulse Ox 94 O2 Delivery Nasal Cannula Nasal Cannula O2 Flow Rate 2.0 02/13/19 02/13/19 02/14/19 02/14/19 23:18 23:54 00:54 01:54 Pulse 98 104 74 B/P (MAP) 129/82 (98) 154/72 (99) 120/71 (87) O2 Delivery Nasal Cannula O2 Flow Rate 4.0 02/14/19 02/14/19 02/14/19 02/14/19 02:50 03:54 04:54 05:22 Temp 97.7 97.7 Pulse 83 70 80 83 Resp 18 B/P (MAP) 140/74 (96) 131/88 (102) 136/72 (93) 140/74 Pulse Ox 92 O2 Delivery Room Air 02/14/19 02/14/19 02/14/19 02/14/19 07:00 08:00 08:15 11:00 Temp 97.7 97.9 97.7 97.9 Pulse 81 91 Resp 18 18 B/P (MAP) 129/70 (89) 143/64 (90) Pulse Ox 98 93 95 O2 Delivery Nasal Cannula Room Air Room Air Nasal Cannula O2 Flow Rate 2.0 2.0 02/14/19 02/14/19 02/14/19 02/14/19 11:57 12:49 12:50 15:00 Temp 97.8 97.8 Pulse 110 110 95 Resp 18 B/P (MAP) 110/66 110/66 132/74 (93) Pulse Ox 94 95 O2 Delivery Room Air Nasal Cannula O2 Flow Rate 2.0 02/14/19 16:09 O2 Delivery Room Air Intake and Output 02/13/19 02/13/19 02/14/19 15:00 23:00 07:00 Intake Total 900 ml 800 ml Output Total 1000 ml 5500 ml 350 ml Balance -1000 ml -4600 ml 450 ml MOOSE MADRID MD Feb 14, 2019 18:06
[2019-02-14] MEDS: ATORVASTATIN CALCIUM 20 MG TABLET PO SCH (20:57)
[2019-02-15] MEDS: HEPARIN 25,000UTS/500ML PREMIX 500 ML IV PRN (02:48)
[2019-02-15] MEDS: IPRATRPIUM/ALBUTEROL 0.5/2.5MG 3 ML NEBU. NEB SCH ×6 (03:15→23:50)
[2019-02-15 03:37] VITALS: BP 143/83
[2019-02-15] MEDS: chlordiazePOXIDE HCL 25 MG CAPSULE PO SCH ×3 (05:59→18:00)
[2019-02-15 07:00] VITALS: BP 151/63
[2019-02-15] MEDS: ASPIRIN ENTERIC COATED 325 MG TABLET.DR. PO SCH (08:00)
[2019-02-15 08:23] LABS: CALCIUM 8.2 mg/dL (8.5-10.1); GFR 34.1; POTASSIUM 3.4 mmol/L (3.5-5.1)
[2019-02-15] MEDS: PANTOPRAZOLE 40 MG TABLET.DR. PO SCH (08:46)
[2019-02-15] MEDS: MULTIVIT INFUSN,ADULT 4,VIT K 10 ML, THIAMINE INJ 100 MG, FOLIC ACID INJ 1 MG in IV NOR... IV SCH (08:47)
--- NOTE | 2019-02-15 09:10 | NUR ---
SS following for discharge planning. PAT team contacted SS and stated that they met with pt and pt stated no interest in resources for substance use. PAT team reported that they discussed with pt and provided what resources they could. Pt stating that he wants to return home.
--- NOTE | 2019-02-15 09:40 | PDOC ---
CARDIO Progress Notes Date and Time Date of Service 02/15/2019 Time of Evaluation 0920 Subjective Subjective: No Chest Pain, No shortness of breath, No Palpitations, Other ( feels better today but did not sleep well last night) Vitals Vitals Vital Signs Date Time Temp Pulse Resp B/P (MAP) Pulse Ox O2 Delivery O2 Flow Rate FiO2 02/15/19 08:46 94 151/63 02/15/19 08:23 95 Room Air 02/15/19 07:00 97.5 16 97.5 02/14/19 15:00 2.0 Weight Weight [ ] Input and Output Intake and Output Intake and Output 02/15/19 06:59 Intake Total 4160 ml Output Total 6400 ml Balance -2240 ml Intake Oral 4160 ml Output Urine Total 6400 ml Laboratory Labs Laboratory Tests Test 02/14/19 15:50 02/14/19 22:10 02/15/19 04:45 Heparin Anti-Xa Act, Unfractionated 0.20 IU/mL (0.30-0.70) 0.37 IU/mL (0.30-0.70) 0.76 IU/mL (0.30-0.70) Sodium Level 124 mmol/L (136-145) Potassium Level 3.4 mmol/L (3.5-5.1) Chloride Level 94 mmol/L (98-107) Carbon Dioxide Level 27 mmol/L (21-32) Anion Gap 3 (6-14) Blood Urea Nitrogen 29 mg/dL (8-26) Creatinine 2.0 mg/dL (0.7-1.3) Estimated GFR (Cockcroft-Gault) 34.1 Glucose Level 125 mg/dL (70-99) Calcium Level 8.2 mg/dL (8.5-10.1) Microbiology Micro Microbiology 02/13/19 Blood Culture - Preliminary, Resulted NO GROWTH AFTER 1 DAY Physical Exam HEENT: Neck Supple W Full Motion Chest: Symmetric LUNGS: Clear to Auscultation Heart: irregularly irregular (AFIB) Abdomen: Soft N/T Extremities: No Edema, No Calf Tenderness, Other (trace LE edema ) Neurology: alert, oriented, follow commands Assessment Assessment 1. AFIB RVR: remains with bouts of RVR 2. Acute diastolic CHF: compensated 3. Obesity; BMI 35 4. Suspect COPD with heavy tobaccoism 5. Heavy chronic ETOH use: 1.5 pints per day 6. Malignant HTN: controlled 7. Suspect CKD 3: noted with macroalbuminuria 8. HLP 9. Hyponatremia: per PCP Recommendations 1. Willing to stop ETOH and emphasis on treatment compliance. off ETOH for >48 hours, banana bag in place. 2. High risk for bleed if continued with ETOH use with [id number] 1-2. Discussed AFIB, and stroke prevention measures and potential cardioversion 3. SS on the case for disability application and outreach PCP referral. 4. Continue cardizem and will add metoprolol for better rate contrl. NPO after midnight for potential NICKY/CVN tomorrow and samples of eliquis will be provided moving forward for at least 4 weeks then then ASA pending his health insurance status. 5. Continue heparin for now, stop ASA 6. CIWA protocol per PCP. 7. smoking cessation 8. Emphasized on lifestyle modification 9. ACEi/ARB would be a consideration with renal disease. JOHN TAN APRN Feb 15, 2019 09:40
[2019-02-15] MEDS ORDERED: 0.9 % SODIUM CHLORIDE 10 ML DISP.SYRIN. IV PRN (09:45)
[2019-02-15] MEDS ORDERED: METOPROLOL TART IMMED RELEASE 25 MG TABLET. PO ONE (10:30)
[2019-02-15 11:00] VITALS: BP 126/81
[2019-02-15] MEDS: APIXABAN 5 MG TABLET. PO SCH ×2 (12:42→21:51)
--- NOTE | 2019-02-15 13:30 | PDOC ---
PROGRESS NOTES Chief Complaint Chief Complaint Acute pulmonary edema resolved Atrial fibrillation with rapid ventricular response improved Acute hypoxemic respiratory failure secondary to the above COPD secondary to tobacco abuse Tobacco abuse counseling has been done less than 10 minutes Obesity with a BMI of 34 Suspect obesity hypoventilation syndrome as well Suspect diastolic dysfunction Dyslipidemia History of alcohol abuse, will monitor for signs of withdrawal and start CIWA protocol Plan: River beta birgit today for better rate control willl follow recommendations from cardiology recommendations greatly appreciated currently on heparin for clot prevention If heart rate does not improve may need a cardioversion after NICKY reassess in the am History of Present Illness History of Present Illness Overall feeling better,, rate better compared to admission. NO chest pain no shortness of breath today clinically stable no signs of withdrawal Vitals Vitals Vital Signs Date Time Temp Pulse Resp B/P (MAP) Pulse Ox O2 Delivery O2 Flow Rate FiO2 02/15/19 12:09 Room Air 02/15/19 11:00 97.8 85 16 126/81 (96) 96 97.8 02/15/19 08:00 2.0 Physical Exam General: Alert, Oriented X3, Cooperative, mild distress Heart: Other (AFIB RVR; diffuse systolic murmur loudest at apex and PAL border 3/6) Abdomen: Soft, No tenderness, Other (truncal obesity) Extremities: No cyanosis, Other (trace to 1+ bilateral LE pitting edema) Skin: No breakdown, No significant lesion Labs LABS Laboratory Tests Test 02/14/19 15:50 02/14/19 22:10 02/15/19 04:45 02/15/19 12:00 Heparin Anti-Xa Act, Unfractionated 0.20 IU/mL (0.30-0.70) 0.37 IU/mL (0.30-0.70) 0.76 IU/mL (0.30-0.70) 0.70 IU/mL (0.30-0.70) Sodium Level 124 mmol/L (136-145) Potassium Level 3.4 mmol/L (3.5-5.1) Chloride Level 94 mmol/L (98-107) Carbon Dioxide Level 27 mmol/L (21-32) Anion Gap 3 (6-14) Blood Urea Nitrogen 29 mg/dL (8-26) Creatinine 2.0 mg/dL (0.7-1.3) Estimated GFR (Cockcroft-Gault) 34.1 Glucose Level 125 mg/dL (70-99) Calcium Level 8.2 mg/dL (8.5-10.1) Review of Systems Review of Systems Pertinent as per history of present illness otherwise 14 point review of system is negative Assessment and Plan Assessmemt and Plan Problems Medical Problems: (1) Acute pulmonary edema Status: Acute (2) Atrial fibrillation with RVR Status: Acute (3) COPD mixed type Status: Acute (4) HTN (hypertension) Status: Acute Comment Review of Relevant I have reviewed the following items alaina (where applicable) has been applied. Labs Laboratory Tests Test 02/13/19 13:50 02/13/19 14:20 02/13/19 18:10 02/14/19 08:43 White Blood Count 7.8 x10^3/uL (4.0-11.0) Red Blood Count 4.78 x10^6/uL (4.30-5.70) Hemoglobin 16.0 g/dL (13.0-17.5) Hematocrit 46.7 % (39.0-53.0) Mean Corpuscular Volume 98 fL (79-100) Mean Corpuscular Hemoglobin 34 pg (25-35) Mean Corpuscular Hemoglobin Concent 34 g/dL (31-37) Red Cell Distribution Width 15.2 % (11.5-14.5) Platelet Count 230 x10^3/uL (140-400) Neutrophils (%) (Auto) 74 % (31-73) Lymphocytes (%) (Auto) 16 % (24-48) Monocytes (%) (Auto) 8 % (0-9) Eosinophils (%) (Auto) 1 % (0-3) Basophils (%) (Auto) 1 % (0-3) Neutrophils # (Auto) 5.8 x10^3uL (1.8-7.7) Lymphocytes # (Auto) 1.2 x10^3/uL (1.0-4.8) Monocytes # (Auto) 0.7 x10^3/uL (0.0-1.1) Eosinophils # (Auto) 0.0 x10^3/uL (0.0-0.7) Basophils # (Auto) 0.1 x10^3/uL (0.0-0.2) Sodium Level 138 mmol/L (136-145) 130 mmol/L (136-145) Potassium Level 3.9 mmol/L (3.5-5.1) 3.5 mmol/L (3.5-5.1) Chloride Level 99 mmol/L (98-107) 92 mmol/L (98-107) Carbon Dioxide Level 23 mmol/L (21-32) 26 mmol/L (21-32) Anion Gap 16 (6-14) 12 (6-14) Blood Urea Nitrogen 21 mg/dL (8-26) 30 mg/dL (8-26) Creatinine 1.6 mg/dL (0.7-1.3) 2.2 mg/dL (0.7-1.3) Estimated GFR (Cockcroft-Gault) 44.2 30.6 BUN/Creatinine Ratio 13 (6-20) Glucose Level 108 mg/dL (70-99) 205 mg/dL (70-99) Hemoglobin A1c 5.6 % (4.8-5.6) Lactic Acid Level 2.1 mmol/L (0.4-2.0) 1.8 mmol/L (0.4-2.0) Calcium Level 9.0 mg/dL (8.5-10.1) 8.3 mg/dL (8.5-10.1) Magnesium Level 1.9 mg/dL (1.8-2.4) 1.5 mg/dL (1.8-2.4) Total Bilirubin 0.5 mg/dL (0.2-1.0) Aspartate Amino Transf (AST/SGOT) 23 U/L (15-37) Alanine Aminotransferase (ALT/SGPT) 30 U/L (16-63) Alkaline Phosphatase 88 U/L (46-116) Creatine Kinase 225 U/L (39-308) Creatine Kinase MB (Mass) 4.2 ng/mL (0.0-3.6) Creatine Kinase MB Relative Index 1.9 % (0-4) Troponin I Quantitative 0.021 ng/mL (0.000-0.055) DO-Pxf-T-Type Natriuretic Peptide 1320 pg/mL (0-124) Total Protein 7.6 g/dL (6.4-8.2) Albumin 3.5 g/dL (3.4-5.0) Albumin/Globulin Ratio 0.9 (1.0-1.7) Triglycerides Level 104 mg/dL (0-150) Cholesterol Level 220 mg/dL (0-200) LDL Cholesterol, Calculated 150 mg/dL (0-100) VLDL Cholesterol, Calculated 21 mg/dL (0-40) Non-HDL Cholesterol Calculated 171 mg/dL (0-129) HDL Cholesterol 49 mg/dL (40-60) Cholesterol/HDL Ratio 4.5 Thyroid Stimulating Hormone (TSH) 1.758 uIU/mL (0.358-3.74) Urine Collection Type Void Urine Color Yellow Urine Clarity Clear Urine pH 6.0 Urine Specific [place] 1.010 Urine Protein >=300 mg/dL (NEG-TRACE) Urine Glucose (UA) Negative mg/dL (NEG) Urine Ketones (Stick) Negative mg/dL (NEG) Urine Blood Trace (NEG) Urine Nitrite Negative (NEG) Urine Bilirubin Negative (NEG) Urine Urobilinogen Dipstick 1.0 mg/dL (0.2 mg/dL) Urine Leukocyte Esterase Negative (NEG) Urine RBC 1-2 /HPF (0-2) Urine WBC 0 /HPF (0-4) Urine Squamous Epithelial Cells Few /LPF Urine Bacteria 0 /HPF (0-FEW) O2 Saturation 89 % (92-99) Arterial Blood pH 7.43 (7.35-7.45) Arterial Blood pCO2 at Patient Temp 30 mmHg (35-46) Arterial Blood pO2 at Patient Temp 52 mmHg (65-108) Arterial Blood HCO3 19 mmol/L (21-28) Arterial Blood Base Excess -4 mmol/L (-3-3) Oxyhemoglobin 84.4 % Methemoglobin 0.2 % (0.0-1.9) Carbon Monoxide, Quantitative 4.7 % (0.0-1.9) FiO2 28 Urine Opiates Screen Neg (NEG) Urine Methadone Screen Neg (NEG) Urine Barbiturates Neg (NEG) Urine Phencyclidine Screen Neg (NEG) Urine Amphetamine/Methamphetamine Neg (NEG) Urine Benzodiazepines Screen Neg (NEG) Urine Cocaine Screen Neg (NEG) Urine Cannabinoids Screen Neg (NEG) Urine Ethyl Alcohol Neg (NEG) Prothrombin Time 13.4 SEC (11.7-14.0) Prothromb Time International Ratio 1.1 (0.8-1.1) Heparin Anti-Xa Act, Unfractionated < 0.10 IU/mL (0.30-0.70) Test 02/14/19 15:50 02/14/19 22:10 02/15/19 04:45 02/15/19 12:00 Heparin Anti-Xa Act, Unfractionated 0.20 IU/mL (0.30-0.70) 0.37 IU/mL (0.30-0.70) 0.76 IU/mL (0.30-0.70) 0.70 IU/mL (0.30-0.70) Sodium Level 124 mmol/L (136-145) Potassium Level 3.4 mmol/L (3.5-5.1) Chloride Level 94 mmol/L (98-107) Carbon Dioxide Level 27 mmol/L (21-32) Anion Gap 3 (6-14) Blood Urea Nitrogen 29 mg/dL (8-26) Creatinine 2.0 mg/dL (0.7-1.3) Estimated GFR (Cockcroft-Gault) 34.1 Glucose Level 125 mg/dL (70-99) Calcium Level 8.2 mg/dL (8.5-10.1) Laboratory Tests Test 02/14/19 15:50 02/14/19 22:10 02/15/19 04:45 02/15/19 12:00 Heparin Anti-Xa Act, Unfractionated 0.20 IU/mL (0.30-0.70) 0.37 IU/mL (0.30-0.70) 0.76 IU/mL (0.30-0.70) 0.70 IU/mL (0.30-0.70) Sodium Level 124 mmol/L (136-145) Potassium Level 3.4 mmol/L (3.5-5.1) Chloride Level 94 mmol/L (98-107) Carbon Dioxide Level 27 mmol/L (21-32) Anion Gap 3 (6-14) Blood Urea Nitrogen 29 mg/dL (8-26) Creatinine 2.0 mg/dL (0.7-1.3) Estimated GFR (Cockcroft-Gault) 34.1 Glucose Level 125 mg/dL (70-99) Calcium Level 8.2 mg/dL (8.5-10.1) Microbiology 02/13/19 Blood Culture - Preliminary, Resulted NO GROWTH AFTER 1 DAY Medications Current Medications Albuterol/ Ipratropium (Duoneb) 3 ml 1X ONCE NEB Last administered on 14:33; Start 02/13/19 at 13:45; Stop 02/13/19 at 13:46; Status DC Methylprednisolone Sodium Succinate (SOLU-Medrol 125MG VIAL) 125 mg 1X ONCE IV Last administered on 02/13/19at 14:03; Start 02/13/19 at 13:45; Stop 02/13/19 at 13:46; Status DC Furosemide (Lasix) 40 mg 1X ONCE IVP Last administered on 02/13/19at 14:08; Start 02/13/19 at 13:45; Stop 02/13/19 at 13:46; Status DC Adenosine (Adenocard) 6 mg 1X ONCE IV Last administered on 02/13/19at 14:04; Start 02/13/19 at 14:00; Stop 02/13/19 at 14:01; Status DC Adenosine (Adenocard) 6 mg STK-MED ONCE IV ; Start 02/13/19 at 14:13; Stop at 14:15; Status DC Diltiazem HCl (Cardizem Iv Push) 20 mg 1X ONCE IVP Last administered on at 14:33; Start 02/13/19 at 14:30; Stop 02/13/19 at 14:32; Status DC Diltiazem HCl 125 mg/Dextrose 125 ml @ 5 mls/hr CONT PRN IV SEE I/O RECORD Last administered on 02/13/19at 23:08; Start 02/13/19 at 14:30; Stop 02/14/19 at 12: 00; Status DC Adenosine (Adenocard) 12 mg 1X ONCE IV Last administered on 02/13/19at 14:34; Start 02/13/19 at 14:30; Stop 02/13/19 at 14:32; Status DC Nitroglycerin (Nitro-Dur) 1 patch DAILY TD ; Start 02/14/19 at 09:00; Stop at 09:00; Status DC Bumetanide (Bumex) 2 mg BID IV Last administered on 02/13/19at 20:28; Start at 15:15; Stop 02/14/19 at 07:52; Status DC Enoxaparin Sodium (Lovenox 40mg Syringe) 40 mg Q24H SQ Last administered on 02/13at 18:14; Start 02/13/19 at 16:00; Stop 02/14/19 at 07:50; Status DC Sodium Chloride (Normal Saline Flush) 3 ml QSHIFT PRN IV AFTER MEDS AND BLOOD DRAWS; Start 02/13/19 at 15:15 Ondansetron HCl (Zofran) 4 mg PRN Q4HRS PRN IV NAUSEA/VOMITING; Start 02/13/19 at 15:15 Zolpidem Tartrate (Ambien) 5 mg PRN QHS PRN PO INSOMNIA Last administered on 02/13/19at 22:00; Start 02/13/19 at 15:15 Acetaminophen (Tylenol) 650 mg PRN Q4HRS PRN PO TEMP OVER 100.4F OR MILD PAIN; Start 02/13/19 at 15:15 Al Hydroxide/Mg Hydroxide (Mylanta Plus Xs) 30 ml PRN DAILY PRN PO HEARTBURN / GAS; Start 02/13/19 at 15:15 Docusate Sodium (Colace) 100 mg PRN BID PRN PO CONSTIPATION; Start 02/13/19 at 15:15 Albuterol/ Ipratropium (Duoneb) 3 ml Q4H NEB Last administered on 02/15/19at 12: 09; Start 02/13/19 at 15:15 Guaifenesin (Robitussin) 200 mg PRN Q4HRS PRN PO COUGH; Start 02/13/19 at 15:15 Lorazepam (Ativan) 0.5 mg PRN Q4HRS PRN PO ANXIETY / AGITATION Last administered on 02/14/19at 12:49; Start 02/13/19 at 15:15 Ondansetron HCl (Zofran) 4 mg PRN Q8HRS PRN IV NAUSEA/VOMITING; Start 02/13/19 at 15:15; Stop 02/14/19 at 09:53; Status DC Albuterol/ Ipratropium (Duoneb) 3 ml RTQID NEB ; Start 02/13/19 at 16:00; Stop at 16:00; Status DC Albuterol/ Ipratropium (Duoneb) 3 ml BID NEB ; Start 02/13/19 at 20:00; Status Cancel Albuterol/ Ipratropium (Duoneb) 3 ml Q4HRS NEB ; Start 02/13/19 at 20:00; Status Cancel Nitroglycerin (Nitro-Bid Oint) 1 inch Q6HRS TP Last administered on 02/14/19 05 :22; Start 02/13/19 at 17:00; Stop 02/14/19 at 12:40; Status DC Labetalol HCl (Normodyne Iv Push) 20 mg PRN Q2HRS PRN IVP ELEVATED BP, SEE COMMENTS; Start 02/13/19 at 16:30 Heparin Sodium/ Dextrose 500 ml @ 20 mls/hr CONT PRN IV SEE I/O RECORD Last administered on 02/15/19at 02:48; Start 02/13/19 at 16:30; Stop 02/15/19 at 12:16; Status DC Heparin Sodium (Porcine) (Heparin Sodium) 2,700 unit PRN Q6HRS PRN IV FOR UFH LEVEL LESS THAN 0.2 Last administered on 02/14/19 09:54; Start 02/13/19 at 16:30 ; Stop 02/15/19 at 12:17; Status DC Atorvastatin Calcium (Lipitor) 20 mg QHS PO Last administered on 02/14/19 20:57 ; Start 02/13/19 at 21:00 Aspirin (Ecotrin) 81 mg DAILYWBKFT PO Last administered on 02/14/19 08:56; Start 02/13/19 at 17:00; Stop 02/14/19 at 12:00; Status DC Pantoprazole Sodium (Protonix) 40 mg DAILY PO Last administered on 02/15/19 08: 46; Start 02/13/19 at 16:30 Nicotine (Nicoderm Cq 21mg) 1 patch PRN DAILY PRN TD SMOKING CESSATION Last administered on 02/14/19 08:54; Start 02/13/19 at 19:45 Morphine Sulfate (Morphine Sulfate) 2 mg PRN Q4HRS PRN IV SEVERE PAIN; Start at 21:15 Digoxin (Lanoxin) 250 mcg DAILY IV ; Start 02/14/19 at 09:00; Status Cancel Oxycodone/ Acetaminophen (Percocet 7.5/ 325) 1 tab PRN Q4HRS PRN PO MODERATE PAIN Last administered on 02/13/19at 22:00; Start 02/13/19 at 21:15 Oxycodone/ Acetaminophen (Percocet 7.5/ 325) 2 tab PRN Q4HRS PRN PO SEVERE PAIN Last administered on 02/13/19 22:00; Start 02/13/19 at 21:15 Digoxin (Lanoxin) 250 mcg 1X ONCE IV Last administered on 02/13/19 22:01; Start 02/13/19 at 22:00; Stop 02/13/19 at 22:01; Status DC Furosemide (Lasix) 40 mg DAILY IVP Last administered on 02/14/19 08:56; Start 02/14/19 at 09:00; Stop 02/14/19 at 14:21; Status DC Diltiazem HCl (Cardizem 24hr Cd) 300 mg DAILY PO Last administered on 02/15/19 08:46; Start 02/14/19 at 13:00 Aspirin (Ecotrin) 325 mg DAILYWBKFT PO Last administered on 02/15/19 08:00; Start 02/14/19 at 13:00; Stop 02/15/19 at 09:42; Status DC Magnesium Sulfate 50 ml @ 25 mls/hr 1X ONCE IV Last administered on 02/14/19 14:37; Start 02/14/19 at 12:45; Stop 02/14/19 at 14:44; Status DC Digoxin (Lanoxin) 250 mcg 1X ONCE IV Last administered on 02/14/19 12:50; Start 02/14/19 at 12:45; Stop 02/14/19 at 12:46; Status DC Multivitamins 10 ml/Thiamine HCl 100 mg/Folic Acid 1 mg/Sodium Chloride 1,011.2 ml @ 100 mls/ hr DAILY IV Last administered on 02/15/19 08:47; Start 02/14/19 at 13:30; Stop 02/18/19 at 19:07 Lorazepam (Ativan) 2 mg Q6H PO ; Start 02/14/19 at 12:30; Stop 02/14/19 at 12:50; Status DC Chlordiazepoxide (Librium) 25 mg Q6HRS PO ; Start 02/14/19 at 13:30; Stop at 18:01 Info (Anti-Coagulation Monitoring By Pharmacy) 1 each PRN DAILY PRN MC SEE COMMENTS Last administered on 02/14/19at 15:17; Start 02/14/19 at 15:30 Metoprolol Tartrate (Lopressor) 25 mg BID PO ; Start 02/15/19 at 21:00 Metoprolol Tartrate (Lopressor) 25 mg 1X ONCE PO Last administered on at 10:20; Start 02/15/19 at 10:30; Stop 02/15/19 at 10:31; Status DC Sodium Chloride (Normal Saline Flush) 10 ml QSHIFT PRN IV AFTER MEDS AND BLOOD DRAWS; Start 02/15/19 at 09:45 Apixaban (Eliquis) 5 mg BID PO Last administered on 02/15/19at 12:42; Start at 13:00 Active Scripts Active Bystolic (Nebivolol) 5 Mg Tablet 5 Mg PO DAILY Tessalon Perle (Benzonatate) 100 Mg Capsule 1 Cap PO TID Prednisone 50 Mg Tablet 1 Tab PO DAILY Ventolin Hfa Inhaler (Albuterol Sulfate) 18 Gm Hfa.aer.ad 2 Puff INH Q4HRS Vitals/I & O Vital Sign - Last 24 Hours 02/14/19 02/14/19 02/14/19 02/14/19 15:00 16:09 19:47 20:10 Temp 97.8 97.8 97.8 97.8 Pulse 95 100 Resp 18 18 B/P (MAP) 132/74 (93) 145/88 (107) Pulse Ox 95 95 O2 Delivery Nasal Cannula Room Air Room Air Room Air O2 Flow Rate 2.0 02/14/19 02/14/19 02/15/19 02/15/19 20:14 23:35 03:37 07:00 Temp 97.8 97.8 97.5 97.8 97.8 97.5 Pulse 101 85 94 Resp 20 18 16 B/P (MAP) 154/74 (100) 143/83 (103) 151/63 (92) Pulse Ox 94 95 96 O2 Delivery Room Air Room Air Room Air Room Air 02/15/19 02/15/19 02/15/19 02/15/19 08:00 08:23 08:46 10:20 Pulse 94 94 B/P (MAP) 151/63 151/63 Pulse Ox 95 O2 Delivery Room Air Room Air O2 Flow Rate 2.0 02/15/19 02/15/19 11:00 12:09 Temp 97.8 97.8 Pulse 85 Resp 16 B/P (MAP) 126/81 (96) Pulse Ox 96 O2 Delivery Room Air Room Air Intake and Output 02/14/19 02/14/19 02/15/19 14:59 22:59 06:59 Intake Total 940 ml 2720 ml 500 ml Output Total 750 ml 2750 ml 2900 ml Balance 190 ml -30 ml -2400 ml MOOSE MADRID MD Feb 15, 2019 13:30
[2019-02-15 15:00] VITALS: BP 149/79
[2019-02-15] MEDS: ANTI-COAG MONITOR BY PHARMACY. MC PRN (16:09)
[2019-02-15] MEDS ORDERED: METOPROLOL TARTRATE 5 MG/5 ML VIAL. IVP ONE (17:30)
[2019-02-15 19:38] VITALS: BP 124/71
[2019-02-15] MEDS: ATORVASTATIN CALCIUM 20 MG TABLET PO SCH (21:49)
[2019-02-15] MEDS: METOPROLOL TART IMMED RELEASE 25 MG TABLET. PO SCH (21:51)
[2019-02-15 22:19] VITALS: BP 153/70
[2019-02-16 03:26] VITALS: BP 133/68
[2019-02-16] MEDS: IPRATRPIUM/ALBUTEROL 0.5/2.5MG 3 ML NEBU. NEB SCH ×5 (03:40→20:24)
[2019-02-16 07:00] VITALS: BP 159/88
[2019-02-16] MEDS ORDERED: PROCHLORPERAZINE 10 MG/2 ML VIAL. IV PRN (07:00)
[2019-02-16] MEDS ORDERED: MORPHINE SULFATE 2 MG/ML VIAL. IV PRN (07:00)
[2019-02-16] MEDS ORDERED: ONDANSETRON PF 4 MG/2 ML VIAL. IV PRN (07:00)
[2019-02-16] MEDS ORDERED: fentaNYL PF VIAL 100 MCG/2 ML VIAL IV PRN ×2 (07:00)
[2019-02-16] MEDS ORDERED: IV RINGERS,LACTATED 1000ML 1,000 ML IV SCH (07:00)
[2019-02-16] MEDS ORDERED: LIDOCAINE 1% PF 2 ML VIAL. ID PRN (07:00)
[2019-02-16] MEDS ORDERED: HYDROmorphone 2 MG/ML VIAL IV PRN (07:00)
[2019-02-16] MEDS: METOPROLOL TART IMMED RELEASE 25 MG TABLET. PO SCH ×2 (09:06→20:47)
[2019-02-16] MEDS: MULTIVIT INFUSN,ADULT 4,VIT K 10 ML, THIAMINE INJ 100 MG, FOLIC ACID INJ 1 MG in IV NOR... IV SCH (09:07)
[2019-02-16 10:00] LABS: CALCIUM 8.2 mg/dL (8.5-10.1); CREATININE 1.7 mg/dL (0.7-1.3); GFR 41.2; MAGNESIUM 2.1 mg/dL (1.8-2.4); POTASSIUM 3.6 mmol/L (3.5-5.1)
--- NOTE | 2019-02-16 10:23 | PDOC ---
CARDIO Progress Notes Date and Time Date of Service 02/16/2019 Time of Evaluation 1000 Subjective Subjective: No Chest Pain, No shortness of breath, No Palpitations Vitals Vitals Vital Signs Date Time Temp Pulse Resp B/P (MAP) Pulse Ox O2 Delivery O2 Flow Rate FiO2 02/16/19 09:06 133 159/88 02/16/19 07:12 92 Room Air 02/16/19 07:00 97.8 18 97.8 02/15/19 08:00 2.0 Weight Weight [ ] Input and Output Intake and Output Intake and Output 02/16/19 07:00 Intake Total 2380 ml Output Total 3875 ml Balance -1495 ml Intake Oral 2380 ml Output Urine Total 3875 ml Laboratory Labs Laboratory Tests Test 02/15/19 12:00 02/16/19 08:57 Heparin Anti-Xa Act, Unfractionated 0.70 IU/mL (0.30-0.70) Sodium Level 140 mmol/L (136-145) Potassium Level 3.6 mmol/L (3.5-5.1) Chloride Level 102 mmol/L (98-107) Carbon Dioxide Level 26 mmol/L (21-32) Anion Gap 12 (6-14) Blood Urea Nitrogen 22 mg/dL (8-26) Creatinine 1.7 mg/dL (0.7-1.3) Estimated GFR (Cockcroft-Gault) 41.2 Glucose Level 105 mg/dL (70-99) Calcium Level 8.2 mg/dL (8.5-10.1) Magnesium Level 2.1 mg/dL (1.8-2.4) Microbiology Micro Microbiology 02/13/19 Blood Culture - Preliminary, Resulted NO GROWTH AFTER 2 DAYS Physical Exam HEENT: Neck Supple W Full Motion Chest: Symmetric LUNGS: Other Heart: irregularly irregular (AFIB) Abdomen: Soft N/T Extremities: No Edema, No Calf Tenderness Neurology: alert, oriented, follow commands Assessment Assessment 1. AFIB RVR: converted to SR yesterday and now refractory with multiple contributors as noted below. 2. Acute diastolic CHF: compensated 3. Obesity with likely ARIADNE; BMI 35 4. Suspect COPD with heavy tobaccoism 5. Heavy chronic ETOH use: 1.5 pints per day 6. Malignant HTN: currently labile post ETOH likely contributing 7. Suspect CKD 3: noted with macroalbuminuria 8. HLP 9. Hyponatremia: per PCP Recommendations 1. Willing to stop ETOH and emphasis on treatment compliance. off ETOH for >72 hours and so far no neurological symptoms. CIWA protocol per PCP. 2. High risk for bleed if continued with ETOH use with [id number] 2, verbalized willingness to stop ETOH and maintain compliance. Discussed AFIB, and stroke prevention measures, risks, Pt agree with maryuriquis. 1 mo Sample provided and 1 mo free card provided with Rx. Discussed if affordability is an issue or relapse from ETOH then may need to switch back to ECASA for stroke prevention. 3. SS on the case for disability application and outreach PCP referral due to financial constraints. 4. Continue cardizem and metoprolol. Amiodarone IV in the next 24 hours. 5. Smoking cessation 6. Emphasized on lifestyle modification 7. ACEi/ARB would be a consideration with renal disease, will reeval as an outpt.. 8. Will consider for outpt stress for further risk stratification JOHN TAN APRN Feb 16, 2019 10:23
[2019-02-16 11:00] VITALS: BP 136/71
[2019-02-16] MEDS ORDERED: AMIODARONE 900 MG in IV DEXTROSE 5% 500 ML IV PRN (11:00)
[2019-02-16] MEDS ORDERED: AMIODARONE 150 MG in IV DEXTROSE 5% 100ML 100 ML IV ONE (11:15)
--- NOTE | 2019-02-16 11:27 | RAD ---
Portable chest, 02/16/2019: HISTORY: Shortness of breath Comparison is made to a study from 02/13/2019. The heart is at the upper limits of normal in size. The pulmonary vascularity has improved and is no longer congested. There are mild streaky basilar opacities compatible with atelectasis. No dense consolidation is seen. No definite pleural fluid is evident. No new abnormality is detected. IMPRESSION: Resolving vascular congestion and pulmonary edema Electronically signed by: Deniz Servin MD (02/16/2019 11:24 AM) [facility]
--- NOTE | 2019-02-16 11:34 | PDOC ---
PROGRESS NOTES Chief Complaint Chief Complaint Acute pulmonary edema resolved Atrial fibrillation with rapid ventricular response improved Acute hypoxemic respiratory failure secondary to the above COPD secondary to tobacco abuse Tobacco abuse counseling has been done less than 10 minutes Obesity with a BMI of 34 Suspect obesity hypoventilation syndrome as well Suspect diastolic dysfunction Dyslipidemia History of alcohol abuse, will monitor for signs of withdrawal and start CIWA protocol Hyponatremia resolved, most likely secondary to dehydration. Plan: will start amiodarone in light of his lack of rate control willl follow recommendations from cardiology transitioned to [facility] for anticoagulation reassess in the am History of Present Illness History of Present Illness Overall feeling better,, rate better compared to admission. NO chest pain no shortness of breath today clinically stable no signs of withdrawal Vitals Vitals Vital Signs Date Time Temp Pulse Resp B/P (MAP) Pulse Ox O2 Delivery O2 Flow Rate FiO2 02/16/19 10:58 98 Room Air 02/16/19 09:06 133 159/88 02/16/19 08:00 2.0 02/16/19 07:00 97.8 18 97.8 Physical Exam General: Alert, Oriented X3, Cooperative, mild distress Heart: Other (AFIB RVR; diffuse systolic murmur loudest at apex and PAL border 3/6) Abdomen: Soft, No tenderness, Other (truncal obesity) Extremities: No cyanosis, Other (trace to 1+ bilateral LE pitting edema) Skin: No breakdown, No significant lesion Labs LABS Laboratory Tests Test 02/15/19 12:00 02/16/19 08:57 Heparin Anti-Xa Act, Unfractionated 0.70 IU/mL (0.30-0.70) Sodium Level 140 mmol/L (136-145) Potassium Level 3.6 mmol/L (3.5-5.1) Chloride Level 102 mmol/L (98-107) Carbon Dioxide Level 26 mmol/L (21-32) Anion Gap 12 (6-14) Blood Urea Nitrogen 22 mg/dL (8-26) Creatinine 1.7 mg/dL (0.7-1.3) Estimated GFR (Cockcroft-Gault) 41.2 Glucose Level 105 mg/dL (70-99) Calcium Level 8.2 mg/dL (8.5-10.1) Magnesium Level 2.1 mg/dL (1.8-2.4) Assessment and Plan Assessmemt and Plan Problems Medical Problems: (1) Acute pulmonary edema Status: Acute (2) Atrial fibrillation with RVR Status: Acute (3) COPD mixed type Status: Acute (4) HTN (hypertension) Status: Acute Comment Review of Relevant I have reviewed the following items alaina (where applicable) has been applied. Labs Laboratory Tests Test 02/14/19 15:50 02/14/19 22:10 02/15/19 04:45 02/15/19 12:00 Heparin Anti-Xa Act, Unfractionated 0.20 IU/mL (0.30-0.70) 0.37 IU/mL (0.30-0.70) 0.76 IU/mL (0.30-0.70) 0.70 IU/mL (0.30-0.70) Sodium Level 124 mmol/L (136-145) Potassium Level 3.4 mmol/L (3.5-5.1) Chloride Level 94 mmol/L (98-107) Carbon Dioxide Level 27 mmol/L (21-32) Anion Gap 3 (6-14) Blood Urea Nitrogen 29 mg/dL (8-26) Creatinine 2.0 mg/dL (0.7-1.3) Estimated GFR (Cockcroft-Gault) 34.1 Glucose Level 125 mg/dL (70-99) Calcium Level 8.2 mg/dL (8.5-10.1) Test 02/16/19 08:57 Sodium Level 140 mmol/L (136-145) Potassium Level 3.6 mmol/L (3.5-5.1) Chloride Level 102 mmol/L (98-107) Carbon Dioxide Level 26 mmol/L (21-32) Anion Gap 12 (6-14) Blood Urea Nitrogen 22 mg/dL (8-26) Creatinine 1.7 mg/dL (0.7-1.3) Estimated GFR (Cockcroft-Gault) 41.2 Glucose Level 105 mg/dL (70-99) Calcium Level 8.2 mg/dL (8.5-10.1) Magnesium Level 2.1 mg/dL (1.8-2.4) Laboratory Tests Test 02/15/19 12:00 02/16/19 08:57 Heparin Anti-Xa Act, Unfractionated 0.70 IU/mL (0.30-0.70) Sodium Level 140 mmol/L (136-145) Potassium Level 3.6 mmol/L (3.5-5.1) Chloride Level 102 mmol/L (98-107) Carbon Dioxide Level 26 mmol/L (21-32) Anion Gap 12 (6-14) Blood Urea Nitrogen 22 mg/dL (8-26) Creatinine 1.7 mg/dL (0.7-1.3) Estimated GFR (Cockcroft-Gault) 41.2 Glucose Level 105 mg/dL (70-99) Calcium Level 8.2 mg/dL (8.5-10.1) Magnesium Level 2.1 mg/dL (1.8-2.4) Microbiology 02/13/19 Blood Culture - Preliminary, Resulted NO GROWTH AFTER 2 DAYS Medications Current Medications Albuterol/ Ipratropium (Duoneb) 3 ml 1X ONCE NEB Last administered on at 14:33; Start 02/13/19 at 13:45; Stop 02/13/19 at 13:46; Status DC Methylprednisolone Sodium Succinate (SOLU-Medrol 125MG VIAL) 125 mg 1X ONCE IV Last administered on 02/13/19at 14:03; Start 02/13/19 at 13:45; Stop 02/13/19 at 13:46; Status DC Furosemide (Lasix) 40 mg 1X ONCE IVP Last administered on 02/13/19at 14:08; Start 02/13/19 at 13:45; Stop 02/13/19 at 13:46; Status DC Adenosine (Adenocard) 6 mg 1X ONCE IV Last administered on 02/13/19at 14:04; Start 02/13/19 at 14:00; Stop 02/13/19 at 14:01; Status DC Adenosine (Adenocard) 6 mg STK-MED ONCE IV ; Start 02/13/19 at 14:13; Stop at 14:15; Status DC Diltiazem HCl (Cardizem Iv Push) 20 mg 1X ONCE IVP Last administered on at 14:33; Start 02/13/19 at 14:30; Stop 02/13/19 at 14:32; Status DC Diltiazem HCl 125 mg/Dextrose 125 ml @ 5 mls/hr CONT PRN IV SEE I/O RECORD Last administered on 02/13/19at 23:08; Start 02/13/19 at 14:30; Stop 02/14/19 at 12: 00; Status DC Adenosine (Adenocard) 12 mg 1X ONCE IV Last administered on 02/13/19at 14:34; Start 02/13/19 at 14:30; Stop 02/13/19 at 14:32; Status DC Nitroglycerin (Nitro-Dur) 1 patch DAILY TD ; Start 02/14/19 at 09:00; Stop at 09:00; Status DC Bumetanide (Bumex) 2 mg BID IV Last administered on 02/13/19at 20:28; Start at 15:15; Stop 02/14/19 at 07:52; Status DC Enoxaparin Sodium (Lovenox 40mg Syringe) 40 mg Q24H SQ Last administered on 02/13at 18:14; Start 02/13/19 at 16:00; Stop 02/14/19 at 07:50; Status DC Sodium Chloride (Normal Saline Flush) 3 ml QSHIFT PRN IV AFTER MEDS AND BLOOD DRAWS; Start 02/13/19 at 15:15 Ondansetron HCl (Zofran) 4 mg PRN Q4HRS PRN IV NAUSEA/VOMITING; Start 02/13/19 at 15:15 Zolpidem Tartrate (Ambien) 5 mg PRN QHS PRN PO INSOMNIA Last administered on 02/13/19at 22:00; Start 02/13/19 at 15:15 Acetaminophen (Tylenol) 650 mg PRN Q4HRS PRN PO TEMP OVER 100.4F OR MILD PAIN; Start 02/13/19 at 15:15 Al Hydroxide/Mg Hydroxide (Mylanta Plus Xs) 30 ml PRN DAILY PRN PO HEARTBURN / GAS; Start 02/13/19 at 15:15 Docusate Sodium (Colace) 100 mg PRN BID PRN PO CONSTIPATION; Start 02/13/19 at 15:15 Albuterol/ Ipratropium (Duoneb) 3 ml Q4H NEB Last administered on 02/16/19at 10: 58; Start 02/13/19 at 15:15 Guaifenesin (Robitussin) 200 mg PRN Q4HRS PRN PO COUGH; Start 02/13/19 at 15:15 Lorazepam (Ativan) 0.5 mg PRN Q4HRS PRN PO ANXIETY / AGITATION Last administered on 02/14/19 12:49; Start 02/13/19 at 15:15 Ondansetron HCl (Zofran) 4 mg PRN Q8HRS PRN IV NAUSEA/VOMITING; Start 02/13/19 at 15:15; Stop 02/14/19 at 09:53; Status DC Albuterol/ Ipratropium (Duoneb) 3 ml RTQID NEB ; Start 02/13/19 at 16:00; Stop at 16:00; Status DC Albuterol/ Ipratropium (Duoneb) 3 ml BID NEB ; Start 02/13/19 at 20:00; Status Cancel Albuterol/ Ipratropium (Duoneb) 3 ml Q4HRS NEB ; Start 02/13/19 at 20:00; Status Cancel Nitroglycerin (Nitro-Bid Oint) 1 inch Q6HRS TP Last administered on 02/14/19at 05 :22; Start 02/13/19 at 17:00; Stop 02/14/19 at 12:40; Status DC Labetalol HCl (Normodyne Iv Push) 20 mg PRN Q2HRS PRN IVP ELEVATED BP, SEE COMMENTS; Start 02/13/19 at 16:30 Heparin Sodium/ Dextrose 500 ml @ 20 mls/hr CONT PRN IV SEE I/O RECORD Last administered on 02/15/19at 02:48; Start 02/13/19 at 16:30; Stop 02/15/19 at 12:16; Status DC Heparin Sodium (Porcine) (Heparin Sodium) 2,700 unit PRN Q6HRS PRN IV FOR UFH LEVEL LESS THAN 0.2 Last administered on 02/14/19 09:54; Start 02/13/19 at 16:30 ; Stop 02/15/19 at 12:17; Status DC Atorvastatin Calcium (Lipitor) 20 mg QHS PO Last administered on 02/15/19at 21:49 ; Start 02/13/19 at 21:00 Aspirin (Ecotrin) 81 mg DAILYWBKFT PO Last administered on 02/14/19at 08:56; Start 02/13/19 at 17:00; Stop 02/14/19 at 12:00; Status DC Pantoprazole Sodium (Protonix) 40 mg DAILY PO Last administered on 02/15/19 08: 46; Start 02/13/19 at 16:30 Nicotine (Nicoderm Cq 21mg) 1 patch PRN DAILY PRN TD SMOKING CESSATION Last administered on 02/14/19 08:54; Start 02/13/19 at 19:45 Morphine Sulfate (Morphine Sulfate) 2 mg PRN Q4HRS PRN IV SEVERE PAIN; Start at 21:15 Digoxin (Lanoxin) 250 mcg DAILY IV ; Start 02/14/19 at 09:00; Status Cancel Oxycodone/ Acetaminophen (Percocet 7.5/ 325) 1 tab PRN Q4HRS PRN PO MODERATE PAIN Last administered on 02/13/19 22:00; Start 02/13/19 at 21:15 Oxycodone/ Acetaminophen (Percocet 7.5/ 325) 2 tab PRN Q4HRS PRN PO SEVERE PAIN Last administered on 02/13/19 22:00; Start 02/13/19 at 21:15 Digoxin (Lanoxin) 250 mcg 1X ONCE IV Last administered on 02/13/19 22:01; Start 02/13/19 at 22:00; Stop 02/13/19 at 22:01; Status DC Furosemide (Lasix) 40 mg DAILY IVP Last administered on 02/14/19 08:56; Start 02/14/19 at 09:00; Stop 02/14/19 at 14:21; Status DC Diltiazem HCl (Cardizem 24hr Cd) 300 mg DAILY PO Last administered on 02/16/19 09:06; Start 02/14/19 at 13:00 Aspirin (Ecotrin) 325 mg DAILYWBKFT PO Last administered on 02/15/19 08:00; Start 02/14/19 at 13:00; Stop 02/15/19 at 09:42; Status DC Magnesium Sulfate 50 ml @ 25 mls/hr 1X ONCE IV Last administered on 02/14/19 14:37; Start 02/14/19 at 12:45; Stop 02/14/19 at 14:44; Status DC Digoxin (Lanoxin) 250 mcg 1X ONCE IV Last administered on 02/14/19 12:50; Start 02/14/19 at 12:45; Stop 02/14/19 at 12:46; Status DC Multivitamins 10 ml/Thiamine HCl 100 mg/Folic Acid 1 mg/Sodium Chloride 1,011.2 ml @ 100 mls/ hr DAILY IV Last administered on 02/16/19at 09:07; Start 02/14/19 at 13:30; Stop 02/18/19 at 19:07 Lorazepam (Ativan) 2 mg Q6H PO ; Start 02/14/19 at 12:30; Stop 02/14/19 at 12:50; Status DC Chlordiazepoxide (Librium) 25 mg Q6HRS PO ; Start 02/14/19 at 13:30; Stop at 18:01; Status DC Info (Anti-Coagulation Monitoring By Pharmacy) 1 each PRN DAILY PRN MC SEE COMMENTS Last administered on 02/15/19at 16:09; Start 02/14/19 at 15:30 Metoprolol Tartrate (Lopressor) 25 mg BID PO Last administered on 02/16/19at 09: 06; Start 02/15/19 at 21:00 Metoprolol Tartrate (Lopressor) 25 mg 1X ONCE PO Last administered on at 10:20; Start 02/15/19 at 10:30; Stop 02/15/19 at 10:31; Status DC Sodium Chloride (Normal Saline Flush) 10 ml QSHIFT PRN IV AFTER MEDS AND BLOOD DRAWS; Start 02/15/19 at 09:45 Apixaban (Eliquis) 5 mg BID PO Last administered on 02/15/19at 21:51; Start at 13:00 Ondansetron HCl (Zofran) 4 mg PRN Q6HRS PRN IV NAUSEA/VOMITING; Start 02/16/19 at 07:00; Stop 02/17/19 at 06:59 Fentanyl Citrate (Fentanyl 2ml Vial) 25 mcg PRN Q5MIN PRN IV MILD PAIN; Start 02/16/19 at 07:00; Stop 02/17/19 at 06:59 Fentanyl Citrate (Fentanyl 2ml Vial) 50 mcg PRN Q5MIN PRN IV MODERATE TO SEVERE PAIN; Start 02/16/19 at 07:00; Stop 02/17/19 at 06:59 Morphine Sulfate (Morphine Sulfate) 1 mg PRN Q10MIN PRN IV SEVERE PAIN; Start 02/16/19 at 07:00; Stop 02/17/19 at 06:59 Ringer's Solution 1,000 ml @ 30 mls/hr Q24H IV ; Start 02/16/19 at 07:00; Stop 02/16/19 at 18:59 Lidocaine HCl (Xylocaine-Mpf 1% 2ml Vial) 2 ml PRN 1X PRN ID PRIOR TO IV START ; Start 02/16/19 at 07:00; Stop 02/17/19 at 06:59 Hydromorphone HCl (Dilaudid) 0.5 mg PRN Q10MIN PRN IV SEV PAIN, Second choice; Start 02/16/19 at 07:00; Stop 02/17/19 at 06:59 Prochlorperazine Edisylate (Compazine) 5 mg PACU PRN PRN IV NAUSEA, MRX1; Start 02/16/19 at 07:00; Stop 02/17/19 at 06:59 Metoprolol Tartrate (Lopressor Vial) 5 mg 1X ONCE IVP Last administered on 02/15at 17:43; Start 02/15/19 at 17:30; Stop 02/15/19 at 17:39; Status DC Amiodarone HCl 900 mg/Dextrose 518 ml @ 0 mls/hr CONT PRN IV SEE I/O RECORD; Start 02/16/19 at 11:00 Amiodarone HCl 150 mg/Dextrose 103 ml @ 618 mls/hr 1X ONCE IV ; Start 02/16/19 at 11:15; Stop 02/16/19 at 11:24; Status DC Active Scripts Active Bystolic (Nebivolol) 5 Mg Tablet 5 Mg PO DAILY Tessalon Perle (Benzonatate) 100 Mg Capsule 1 Cap PO TID Prednisone 50 Mg Tablet 1 Tab PO DAILY Ventolin Hfa Inhaler (Albuterol Sulfate) 18 Gm Hfa.aer.ad 2 Puff INH Q4HRS Vitals/I & O Vital Sign - Last 24 Hours 02/15/19 02/15/19 02/15/19 02/15/19 12:09 15:00 16:01 17:43 Temp 98.1 98.1 Pulse 93 110 Resp 18 B/P (MAP) 149/79 (102) 149/79 Pulse Ox 95 O2 Delivery Room Air Room Air Room Air 02/15/19 02/15/19 02/15/19 02/15/19 19:38 20:00 20:22 21:51 Temp 98.1 98.1 Pulse 90 90 Resp 18 B/P (MAP) 124/71 (88) 124/71 Pulse Ox 95 94 O2 Delivery Room Air Room Air Room Air 02/15/19 02/15/19 02/16/19 02/16/19 22:19 23:25 03:26 03:39 Temp 98.0 98.0 Pulse 96 66 Resp 18 18 B/P (MAP) 153/70 (97) 133/68 (89) Pulse Ox 95 94 O2 Delivery Room Air Room Air Room Air Room Air 02/16/19 02/16/19 02/16/19 02/16/19 07:00 07:12 08:00 09:06 Temp 97.8 97.8 Pulse 133 133 Resp 18 B/P (MAP) 159/88 (111) 159/88 Pulse Ox 96 92 O2 Delivery Room Air Room Air Nasal Cannula O2 Flow Rate 2.0 02/16/19 02/16/19 09:06 10:58 Pulse 133 B/P (MAP) 159/88 Pulse Ox 98 O2 Delivery Room Air Intake and Output 02/15/19 02/15/19 02/16/19 15:00 23:00 07:00 Intake Total 430 ml 1050 ml 900 ml Output Total 700 ml 1000 ml 2175 ml Balance -270 ml 50 ml -1275 ml MOOSE MADRID MD Feb 16, 2019 11:34
[2019-02-16] MEDS: NICOTINE 21MG PATCH. TD PRN (11:46)
[2019-02-16] MEDS: PANTOPRAZOLE 40 MG TABLET.DR. PO SCH (11:46)
[2019-02-16] MEDS: APIXABAN 5 MG TABLET. PO SCH ×2 (11:46→20:46)
--- NOTE | 2019-02-16 13:48 | NUR ---
SS following up with discharge planning. Discharge disposition remains to home at this time. Pt is currently on room air and self pay status. No discharge needs noted at this time. SS will continue to follow for pending discharge needs.
[2019-02-16 15:00] VITALS: BP 156/84
[2019-02-16] MEDS ORDERED: POTASSIUM CHLORIDE 20 MEQ TABLET.ER. PO ONE (15:45)
[2019-02-16] MEDS ORDERED: FUROSEMIDE 20 MG/2 ML VIAL. IVP ONE ×2 (15:45)
[2019-02-16] MEDS ORDERED: hydrALAZINE 20 MG/ML VIAL. IVP PRN (15:45)
[2019-02-16] MEDS ORDERED: DIGOXIN IV 500 MCG/2 ML AMPUL. IV ONE (16:15)
[2019-02-16] MEDS ORDERED: METOPROLOL TART IMMED RELEASE 25 MG TABLET. PO ONE (19:00)
[2019-02-16 19:27] VITALS: BP 162/81
[2019-02-16] MEDS: ATORVASTATIN CALCIUM 20 MG TABLET PO SCH (20:46)
[2019-02-16 23:09] VITALS: BP 162/76
[2019-02-17] MEDS: IPRATRPIUM/ALBUTEROL 0.5/2.5MG 3 ML NEBU. NEB SCH ×4 (00:10→11:40)
[2019-02-17 03:23] VITALS: BP 156/85
[2019-02-17 07:36] VITALS: BP 150/93
[2019-02-17] MEDS: PANTOPRAZOLE 40 MG TABLET.DR. PO SCH (08:06)
[2019-02-17] MEDS: APIXABAN 5 MG TABLET. PO SCH (08:06)
[2019-02-17] MEDS ORDERED: METOPROLOL TART IMMED RELEASE 50 MG TABLET. PO SCH (09:00)
[2019-02-17] MEDS ORDERED: LORA0.5T96 PO (10:39)
[2019-02-17] MEDS ORDERED: DILTIAZEM HCL PO (10:39)
[2019-02-17] MEDS ORDERED: OXYC1TAB19 PO (10:39)
[2019-02-17] MEDS ORDERED: METO50TA6 PO (10:39)
[2019-02-17] MEDS ORDERED: APIX5TAB PO (10:39)
[2019-02-17] MEDS ORDERED: ATOR20TA58 PO (10:39)
[2019-02-17 11:06] VITALS: BP 174/82
--- NOTE | 2019-02-17 13:02 | NUR ---
no orders from dr wilson for patient to go home on amidodarone. patient to go home on cardizem, metoprolol tartrate, and eliquis per Dr. Wilson.
--- NOTE | 2019-02-17 13:12 | PDOC ---
PROGRESS NOTES Subjective Subjective Patient seen and examined The patient looks and feels better today. Objective Objective Vital Signs Date Time Temp Pulse Resp B/P (MAP) Pulse Ox O2 Delivery O2 Flow Rate FiO2 02/17/19 11:41 95 Room Air 02/17/19 11:06 98.5 86 16 174/82 (112) 98.5 02/16/19 08:00 2.0 Intake and Output 02/17/19 07:00 Intake Total 3320 ml Output Total 5500 ml Balance -2180 ml Intake Oral 3120 ml IV Total 200 ml Output Urine Total 5500 ml Physical Exam Abdomen: Normal bowel sounds Heart: Other (irregularly irregular) Extremities: No clubbing General: No acute distress Lungs: Clear to auscultation Assessment Assessment Problems Medical Problems: (1) Acute pulmonary edema Status: Acute (2) Atrial fibrillation with RVR Status: Acute (3) COPD mixed type Status: Acute (4) HTN (hypertension) Status: Acute 1. AFIB RVR: Paroxysmal atrial fibrillation with episodes of sinus. Rate now under control. Okay for home from a cardiac viewpoint on calcium channel blockers, beta blockers and samples of Eliquis. We'll follow-up in the office in 3-4 weeks. 2. Acute diastolic CHF: compensated 3. Obesity with likely ARIADNE; BMI 35 4. Suspect COPD with heavy tobaccoism 5. Heavy chronic ETOH use: 1.5 pints per day 6. Malignant HTN: currently labile post ETOH likely contributing 7. Suspect CKD 3: noted with macroalbuminuria 8. HLP Comment Review of Relevant I have reviewed the following items alaina (where applicable) has been applied. Labs Laboratory Tests Test 02/16/19 08:57 Sodium Level 140 mmol/L (136-145) Potassium Level 3.6 mmol/L (3.5-5.1) Chloride Level 102 mmol/L (98-107) Carbon Dioxide Level 26 mmol/L (21-32) Anion Gap 12 (6-14) Blood Urea Nitrogen 22 mg/dL (8-26) Creatinine 1.7 mg/dL (0.7-1.3) Estimated GFR (Cockcroft-Gault) 41.2 Glucose Level 105 mg/dL (70-99) Calcium Level 8.2 mg/dL (8.5-10.1) Magnesium Level 2.1 mg/dL (1.8-2.4) Microbiology 02/13/19 Blood Culture - Preliminary, Resulted NO GROWTH AFTER 3 DAYS Medications Current Medications Albuterol/ Ipratropium (Duoneb) 3 ml 1X ONCE NEB Last administered on at 14:33; Start 02/13/19 at 13:45; Stop 02/13/19 at 13:46; Status DC Methylprednisolone Sodium Succinate (SOLU-Medrol 125MG VIAL) 125 mg 1X ONCE IV Last administered on 02/13/19at 14:03; Start 02/13/19 at 13:45; Stop 02/13/19 at 13:46; Status DC Furosemide (Lasix) 40 mg 1X ONCE IVP Last administered on 02/13/19at 14:08; Start 02/13/19 at 13:45; Stop 02/13/19 at 13:46; Status DC Adenosine (Adenocard) 6 mg 1X ONCE IV Last administered on 02/13/19at 14:04; Start 02/13/19 at 14:00; Stop 02/13/19 at 14:01; Status DC Adenosine (Adenocard) 6 mg STK-MED ONCE IV ; Start 02/13/19 at 14:13; Stop at 14:15; Status DC Diltiazem HCl (Cardizem Iv Push) 20 mg 1X ONCE IVP Last administered on at 14:33; Start 02/13/19 at 14:30; Stop 02/13/19 at 14:32; Status DC Diltiazem HCl 125 mg/Dextrose 125 ml @ 5 mls/hr CONT PRN IV SEE I/O RECORD Last administered on 02/13/19at 23:08; Start 02/13/19 at 14:30; Stop 02/14/19 at 12: 00; Status DC Adenosine (Adenocard) 12 mg 1X ONCE IV Last administered on 02/13/19at 14:34; Start 02/13/19 at 14:30; Stop 02/13/19 at 14:32; Status DC Nitroglycerin (Nitro-Dur) 1 patch DAILY TD ; Start 02/14/19 at 09:00; Stop at 09:00; Status DC Bumetanide (Bumex) 2 mg BID IV Last administered on 02/13/19at 20:28; Start at 15:15; Stop 02/14/19 at 07:52; Status DC Enoxaparin Sodium (Lovenox 40mg Syringe) 40 mg Q24H SQ Last administered on 02/13at 18:14; Start 02/13/19 at 16:00; Stop 02/14/19 at 07:50; Status DC Sodium Chloride (Normal Saline Flush) 3 ml QSHIFT PRN IV AFTER MEDS AND BLOOD DRAWS; Start 02/13/19 at 15:15 Ondansetron HCl (Zofran) 4 mg PRN Q4HRS PRN IV NAUSEA/VOMITING; Start 02/13/19 at 15:15 Zolpidem Tartrate (Ambien) 5 mg PRN QHS PRN PO INSOMNIA Last administered on 02/13/19at 22:00; Start 02/13/19 at 15:15 Acetaminophen (Tylenol) 650 mg PRN Q4HRS PRN PO TEMP OVER 100.4F OR MILD PAIN; Start 02/13/19 at 15:15 Al Hydroxide/Mg Hydroxide (Mylanta Plus Xs) 30 ml PRN DAILY PRN PO HEARTBURN / GAS; Start 02/13/19 at 15:15 Docusate Sodium (Colace) 100 mg PRN BID PRN PO CONSTIPATION; Start 02/13/19 at 15:15 Albuterol/ Ipratropium (Duoneb) 3 ml Q4H NEB Last administered on 02/17/19at 11: 40; Start 02/13/19 at 15:15 Guaifenesin (Robitussin) 200 mg PRN Q4HRS PRN PO COUGH; Start 02/13/19 at 15:15 Lorazepam (Ativan) 0.5 mg PRN Q4HRS PRN PO ANXIETY / AGITATION Last administered on 02/14/19at 12:49; Start 02/13/19 at 15:15 Ondansetron HCl (Zofran) 4 mg PRN Q8HRS PRN IV NAUSEA/VOMITING; Start 02/13/19 at 15:15; Stop 02/14/19 at 09:53; Status DC Albuterol/ Ipratropium (Duoneb) 3 ml RTQID NEB ; Start 02/13/19 at 16:00; Stop at 16:00; Status DC Albuterol/ Ipratropium (Duoneb) 3 ml BID NEB ; Start 02/13/19 at 20:00; Status Cancel Albuterol/ Ipratropium (Duoneb) 3 ml Q4HRS NEB ; Start 02/13/19 at 20:00; Status Cancel Nitroglycerin (Nitro-Bid Oint) 1 inch Q6HRS TP Last administered on 02/14/19at 05 :22; Start 02/13/19 at 17:00; Stop 02/14/19 at 12:40; Status DC Labetalol HCl (Normodyne Iv Push) 20 mg PRN Q2HRS PRN IVP ELEVATED BP, SEE COMMENTS; Start 02/13/19 at 16:30 Heparin Sodium/ Dextrose 500 ml @ 20 mls/hr CONT PRN IV SEE I/O RECORD Last administered on 02/15/19at 02:48; Start 02/13/19 at 16:30; Stop 02/15/19 at 12:16; Status DC Heparin Sodium (Porcine) (Heparin Sodium) 2,700 unit PRN Q6HRS PRN IV FOR UFH LEVEL LESS THAN 0.2 Last administered on 02/14/19 09:54; Start 02/13/19 at 16:30 ; Stop 02/15/19 at 12:17; Status DC Atorvastatin Calcium (Lipitor) 20 mg QHS PO Last administered on 02/16/19 20:46 ; Start 02/13/19 at 21:00 Aspirin (Ecotrin) 81 mg DAILYWBKFT PO Last administered on 02/14/19at 08:56; Start 02/13/19 at 17:00; Stop 02/14/19 at 12:00; Status DC Pantoprazole Sodium (Protonix) 40 mg DAILY PO Last administered on 02/17/19 08: 06; Start 02/13/19 at 16:30 Nicotine (Nicoderm Cq 21mg) 1 patch PRN DAILY PRN TD SMOKING CESSATION Last administered on 02/16/19 11:46; Start 02/13/19 at 19:45 Morphine Sulfate (Morphine Sulfate) 2 mg PRN Q4HRS PRN IV SEVERE PAIN; Start at 21:15 Digoxin (Lanoxin) 250 mcg DAILY IV ; Start 02/14/19 at 09:00; Status Cancel Oxycodone/ Acetaminophen (Percocet 7.5/ 325) 1 tab PRN Q4HRS PRN PO MODERATE PAIN Last administered on 02/13/19 22:00; Start 02/13/19 at 21:15 Oxycodone/ Acetaminophen (Percocet 7.5/ 325) 2 tab PRN Q4HRS PRN PO SEVERE PAIN Last administered on 02/13/19 22:00; Start 02/13/19 at 21:15 Digoxin (Lanoxin) 250 mcg 1X ONCE IV Last administered on 02/13/19at 22:01; Start 02/13/19 at 22:00; Stop 02/13/19 at 22:01; Status DC Furosemide (Lasix) 40 mg DAILY IVP Last administered on 02/14/19 08:56; Start 02/14/19 at 09:00; Stop 02/14/19 at 14:21; Status DC Diltiazem HCl (Cardizem 24hr Cd) 300 mg DAILY PO Last administered on 02/17/19 08:06; Start 02/14/19 at 13:00 Aspirin (Ecotrin) 325 mg DAILYWBKFT PO Last administered on 02/15/19 08:00; Start 02/14/19 at 13:00; Stop 02/15/19 at 09:42; Status DC Magnesium Sulfate 50 ml @ 25 mls/hr 1X ONCE IV Last administered on 02/14/19at 14:37; Start 02/14/19 at 12:45; Stop 02/14/19 at 14:44; Status DC Digoxin (Lanoxin) 250 mcg 1X ONCE IV Last administered on 02/14/19at 12:50; Start 02/14/19 at 12:45; Stop 02/14/19 at 12:46; Status DC Multivitamins 10 ml/Thiamine HCl 100 mg/Folic Acid 1 mg/Sodium Chloride 1,011.2 ml @ 100 mls/ hr DAILY IV Last administered on 02/16/19 09:07; Start 02/14/19 at 13:30; Stop 02/17/19 at 09:38; Status DC Lorazepam (Ativan) 2 mg Q6H PO ; Start 02/14/19 at 12:30; Stop 02/14/19 at 12:50; Status DC Chlordiazepoxide (Librium) 25 mg Q6HRS PO ; Start 02/14/19 at 13:30; Stop at 18:01; Status DC Info (Anti-Coagulation Monitoring By Pharmacy) 1 each PRN DAILY PRN MC SEE COMMENTS Last administered on 02/15/19at 16:09; Start 02/14/19 at 15:30 Metoprolol Tartrate (Lopressor) 25 mg BID PO Last administered on 02/16/19at 20: 47; Start 02/15/19 at 21:00; Stop 02/17/19 at 07:45; Status DC Metoprolol Tartrate (Lopressor) 25 mg 1X ONCE PO Last administered on at 10:20; Start 02/15/19 at 10:30; Stop 02/15/19 at 10:31; Status DC Sodium Chloride (Normal Saline Flush) 10 ml QSHIFT PRN IV AFTER MEDS AND BLOOD DRAWS; Start 02/15/19 at 09:45 Apixaban (Eliquis) 5 mg BID PO Last administered on 02/17/19at 08:06; Start at 13:00 Ondansetron HCl (Zofran) 4 mg PRN Q6HRS PRN IV NAUSEA/VOMITING; Start 02/16/19 at 07:00; Stop 02/16/19 at 18:00; Status DC Fentanyl Citrate (Fentanyl 2ml Vial) 25 mcg PRN Q5MIN PRN IV MILD PAIN; Start 02/16/19 at 07:00; Stop 02/16/19 at 18:00; Status DC Fentanyl Citrate (Fentanyl 2ml Vial) 50 mcg PRN Q5MIN PRN IV MODERATE TO SEVERE PAIN; Start 02/16/19 at 07:00; Stop 02/16/19 at 18:00; Status DC Morphine Sulfate (Morphine Sulfate) 1 mg PRN Q10MIN PRN IV SEVERE PAIN; Start 02/16/19 at 07:00; Stop 02/16/19 at 18:00; Status DC Ringer's Solution 1,000 ml @ 30 mls/hr Q24H IV ; Start 02/16/19 at 07:00; Stop 02/16/19 at 18:59; Status DC Lidocaine HCl (Xylocaine-Mpf 1% 2ml Vial) 2 ml PRN 1X PRN ID PRIOR TO IV START ; Start 02/16/19 at 07:00; Stop 02/16/19 at 18:00; Status DC Hydromorphone HCl (Dilaudid) 0.5 mg PRN Q10MIN PRN IV SEV PAIN, Second choice; Start 02/16/19 at 07:00; Stop 02/16/19 at 18:00; Status DC Prochlorperazine Edisylate (Compazine) 5 mg PACU PRN PRN IV NAUSEA, MRX1; Start 02/16/19 at 07:00; Stop 02/16/19 at 18:00; Status DC Metoprolol Tartrate (Lopressor Vial) 5 mg 1X ONCE IVP Last administered on 02/15at 17:43; Start 02/15/19 at 17:30; Stop 02/15/19 at 17:39; Status DC Amiodarone HCl 900 mg/Dextrose 518 ml @ 0 mls/hr CONT PRN IV SEE I/O RECORD Last administered on 02/16/19at 11:45; Start 02/16/19 at 11:00; Stop 02/16/19 at 11: 51; Status DC Amiodarone HCl 150 mg/Dextrose 103 ml @ 618 mls/hr 1X ONCE IV Last administered on 02/16/19at 11:48; Start 02/16/19 at 11:15; Stop 02/16/19 at 11:24; Status DC Furosemide (Lasix) 20 mg 1X ONCE IVP ; Start 02/16/19 at 15:45; Stop 02/16/19 at 15:46; Status UNV Hydralazine HCl (Apresoline Inj) 10 mg PRN Q4HRS PRN IVP ELEVATED BP, SEE COMMENTS; Start 02/16/19 at 15:45 Potassium Chloride (Klor-Con) 20 meq 1X ONCE PO Last administered on 02/16/19at 16:36; Start 02/16/19 at 15:45; Stop 02/16/19 at 15:46; Status DC Furosemide (Lasix) 20 mg 1X ONCE IVP Last administered on 02/16/19at 16:35; Start 02/16/19 at 15:45; Stop 02/16/19 at 15:46; Status DC Digoxin (Lanoxin) 250 mcg 1X ONCE IV Last administered on 02/16/19at 16:36; Start 02/16/19 at 16:15; Stop 02/16/19 at 16:17; Status DC Metoprolol Tartrate (Lopressor) 25 mg 1X ONCE PO Last administered on at 18:46; Start 02/16/19 at 19:00; Stop 02/16/19 at 19:01; Status DC Metoprolol Tartrate (Lopressor) 50 mg BID PO Last administered on 02/17/19at 08: 07; Start 02/17/19 at 09:00 Active Scripts Active Ativan (Lorazepam) 0.5 Mg Tablet 0.5 Mg PO PRN Q4HRS PRN 10 Days Percocet 7.5-325 Mg Tablet (Oxycodone/Acetaminophen) 1 Each Tablet 1 Tab PO PRN Q4HRS PRN 3 Days [Diltiazem Hcl] 300 MG Cap.er.24h 300 Mg PO DAILY 30 Days Metoprolol Tartrate 50 Mg Tablet 50 Mg PO BID 30 Days Atorvastatin Calcium 20 Mg Tablet 20 Mg PO QHS 30 Days Eliquis (Apixaban) 5 Mg Tablet 5 Mg PO BID 30 Days Tessalon Perle (Benzonatate) 100 Mg Capsule 1 Cap PO TID Ventolin Hfa Inhaler (Albuterol Sulfate) 18 Gm Hfa.aer.ad 2 Puff INH Q4HRS Vitals/I & O Vital Sign - Last 24 Hours 02/16/19 02/16/19 02/16/19 02/16/19 15:00 15:27 16:36 18:46 Temp 98.2 98.2 Pulse 52 124 124 Resp 18 B/P (MAP) 156/84 (108) 166/87 166/87 Pulse Ox 95 O2 Delivery Room Air Room Air 02/16/19 02/16/19 02/16/19 02/16/19 19:27 19:31 20:24 20:47 Temp 98.2 98.2 Pulse 90 88 Resp 22 B/P (MAP) 162/81 (108) 181/75 Pulse Ox 96 O2 Delivery Room Air Room Air Room Air 02/16/19 02/17/19 02/17/19 02/17/19 23:09 00:11 03:23 04:01 Temp 98.2 98.2 98.2 98.2 Pulse 71 105 Resp 20 20 B/P (MAP) 162/76 (104) 156/85 (108) Pulse Ox 95 95 O2 Delivery Room Air Room Air Room Air Room Air 02/17/19 02/17/19 02/17/19 02/17/19 07:30 07:33 07:36 08:06 Temp 98.0 98.0 Pulse 114 114 Resp 18 B/P (MAP) 150/93 (112) 150/93 Pulse Ox 95 94 O2 Delivery Room Air Room Air Room Air 02/17/19 02/17/19 02/17/19 08:07 11:06 11:41 Temp 98.5 98.5 Pulse 130 86 Resp 16 B/P (MAP) 150/93 174/82 (112) Pulse Ox 96 95 O2 Delivery Room Air Room Air Intake and Output 02/16/19 02/16/19 02/17/19 15:00 23:00 07:00 Intake Total 320 ml 1600 ml 1400 ml Output Total 1250 ml 1550 ml 2700 ml Balance -930 ml 50 ml -1300 ml GARCIA RADFORD MD Feb 17, 2019 13:12
--- NOTE | 2019-02-17 13:31 | NUR ---
PATIENTS IVS OUT AND MONITOR OFF. DISCUSSED DISCHARGE INSTRUCTIONS AND TO FOLLOW UP WITH CARDIOLOGY IN 4 WEEKS. PATIENT GIVEN PRESCRIPTIONS FOR CARDIZEM, ELIQUIS, METOPROLOL TARTRATE, ATORVASTATIN, PERCOCET, AND ATIVAN. PATIENT HAS NO QUESTIONS AT TIME OF DISCHARGE. PATIENT STABLE AT TIME OF DISCHARGE.
--- NOTE | 2019-02-17 15:31 | PDOC3 ---
Discharge Summary Visit Information Date of Admission: Feb 13, 2019 Date of Discharge: Feb 17, 2019 Admitting Diagnosis Comment: Acute pulmonary edema Atrial fibrillation with rapid ventricular response Acute hypoxemic respiratory failure secondary to the above COPD secondary to tobacco abuse Tobacco abuse counseling has been done less than 10 minutes Obesity with a BMI of 34 Suspect obesity hypoventilation syndrome as well Suspect diastolic dysfunction Dyslipidemia Final Diagnosis Problems Medical Problems: (1) Acute pulmonary edema resolved Status: Acute (2) Atrial fibrillation with RVR resolved Status: Acute (3) COPD mixed type improved Status: Acute (4) HTN (hypertension) 5 Obesity with a BMIof 34 Suspected obesity hypoventilation syndrome Status: Acute Brief Hospital Course Allergies Allergies Coded Allergies Type Severity Reaction Last Updated Verified lisinopril Allergy Severe swelling of the tongue 02/13/19 Yes Penicillins Allergy Intermediate hives 02/13/19 Yes Vital Signs Vital Signs Date Time Temp Pulse Resp B/P (MAP) Pulse Ox O2 Delivery O2 Flow Rate FiO2 02/17/19 11:41 95 Room Air 02/17/19 11:06 98.5 86 16 174/82 (112) 98.5 02/16/19 08:00 2.0 Lab Results Laboratory Tests Test 02/16/19 08:57 Sodium Level 140 mmol/L (136-145) Potassium Level 3.6 mmol/L (3.5-5.1) Chloride Level 102 mmol/L (98-107) Carbon Dioxide Level 26 mmol/L (21-32) Anion Gap 12 (6-14) Blood Urea Nitrogen 22 mg/dL (8-26) Creatinine 1.7 mg/dL (0.7-1.3) Estimated GFR (Cockcroft-Gault) 41.2 Glucose Level 105 mg/dL (70-99) Calcium Level 8.2 mg/dL (8.5-10.1) Magnesium Level 2.1 mg/dL (1.8-2.4) Brief Hospital Course Mr. Matthew is a 63 old who presented with severe shortness of breath and acute pulmonary edema. The patient was admitted to the medical floor since he also presented with intermittent fibrillation with rapid ventricular response as a consequence of the pulmonary edema. The patient is a heavy smoker and also a heavy drinker he did not percent withdrawal symptoms he received banana bags and Ativan for withdrawal symptoms throughout his hospital stay. He did not percent hallucinations or hemodynamic instability. He was started on Cardizem and unfortunately failed to respond to one single agent. He required the addition of a beta birgit in order to control his heart rate. Consultation with cardiology was requested and they recommended also started patient on Eliquis for primary prevention given his comorbidities. ECHO was requested and results are as follow: The left ventricle is normal size. The left ventricular systolic function is normal and the ejection fraction is within normal range. The LV ejection fraction is 55-60%. There is mild concentric left ventricular hypertrophy. There is no significant aortic valvular stenosis. Doppler and Color Flow revealed no significant aortic regurgitation. Doppler and Color-flow revealed mild to moderate mitral regurgitation. Doppler and Color Flow revealed trace tricuspid valve regurgitation Patient was medically optimized and his heart rate was in the 90s upon discharge. Extensive counseling regarding the importance of abstaining from alcohol coffee chocolate and stimulants due to his underlying rhythm was stressed to the patient. Smoking cessation was strongly recommended as well. I have encourage the patient to establish care with a primary care physician in the community noted to continue with his care. all the instructions were discussed in detail with the family member at bedside as well older concerns were addressed to the best of my abilities Patient in good spiritis to be discahrged home signs and symptoms of alarm were discussed prior to diacharge General: Alert, Oriented X3, Cooperative, mild distress Heart: Other (AFIB RVR; diffuse systolic murmur loudest at apex and PAL border 3/6) Abdomen: Soft, No tenderness, Other (truncal obesity) Extremities: No cyanosis, Other (trace to 1+ bilateral LE pitting edema) Skin: No breakdown, No significant lesion Discharge Information Condition at Discharge: Improved Follow Up: Weeks Disposition/Orders: D/C to Home Scheduled Albuterol Sulfate (Ventolin Hfa Inhaler) 18 Gm Hfa.aer.ad, 2 PUFF INH Q4HRS for FOR ASTHMA, #1 Ref 0 Prescribed by: Estrellita Miller APRN on 06/12/18 1355 Apixaban (Eliquis) 5 Mg Tablet, 5 MG PO BID for anticoagulation for 30 Days, #60 Prescribed by: MOOSE MADRID MD on 02/17/19 1039 Atorvastatin Calcium (Atorvastatin Calcium) 20 Mg Tablet, 20 MG PO QHS for dyslipidemia for 30 Days, #30 Prescribed by: MOOSE MADRID MD on 02/17/19 1039 Benzonatate (Tessalon Perle) 100 Mg Capsule, 1 CAP PO TID, #30 Prescribed by: Estrellita Miller APRN on 06/12/18 1355 Metoprolol Tartrate (Metoprolol Tartrate) 50 Mg Tablet, 50 MG PO BID for afib for 30 Days, #60 Prescribed by: MOOSE MADRID MD on 02/17/19 1039 [Diltiazem Hcl] 300 MG CAP.ER.24H, 300 MG PO DAILY for rate control for 30 Days , #30 Prescribed by: MOOSE MADRID MD on 02/17/19 1039 Scheduled PRN Lorazepam (Ativan) 0.5 Mg Tablet, 0.5 MG PO PRN Q4HRS PRN for ANXIETY / AGITATION for 10 Days, #30 Prescribed by: MOOSE MADRID MD on 02/17/19 1039 Oxycodone/Apap 7.5-325 (Percocet 7.5-325 Mg Tablet ) 1 Each Tablet, 1 TAB PO PRN Q4HRS PRN for MODERATE PAIN for 3 Days, #18 Prescribed by: MOOSE MADRID MD on 02/17/19 1039 MOOSE MADRID MD Feb 17, 2019 15:31
== END 2019-02-17 13:40 | disposition home or self-care (01) | DRG 291 ==
LOC: ER 14:10 → 2 NORTH 15:05
PROVIDERS: ADMIT Internal Medicine; ATTEND Internal Medicine
DX: I11.0 Hypertensive heart disease with heart failure (principal); J96.01 Acute respiratory failure with hypoxia; E87.1 Hypo-osmolality and hyponatremia; I48.0 Paroxysmal atrial fibrillation; I50.41 Acute combined systolic (congestive) and diastolic (congestive) heart failure; E66.01 Morbid (severe) obesity due to excess calories; E78.5 Hyperlipidemia, unspecified; F17.210 Nicotine dependence, cigarettes, uncomplicated; G47.00 Insomnia, unspecified; G47.33 Obstructive sleep apnea (adult) (pediatric); I16.0 Hypertensive urgency; I34.0 Nonrheumatic mitral (valve) insufficiency; I45.10 Unspecified right bundle-branch block; J44.9 Chronic obstructive pulmonary disease, unspecified; M17.10 Unilateral primary osteoarthritis, unspecified knee; N18.9 Chronic kidney disease, unspecified; Z68.35 Body mass index [BMI] 35.0-35.9, adult; Z79.01 Long term (current) use of anticoagulants; Z82.49 Family history of ischemic heart disease and other diseases of the circulatory system; Z90.49 Acquired absence of other specified parts of digestive tract; Z91.19 Patient's noncompliance with other medical treatment and regimen
CPT/HCPCS: 36415; 36600; 71045; 80048; 80053; 80061; 80307; 81001; 82553; 82805; 83036; 83605; 83735; 83880; 84443; 84484; 85025; 85520; 85610; 87040; 93005; 93306; 94640; 94760; 96374; 96375; 99406; J0153; J0282; J1160; J1644; J1650; J1940; J2930; J3475; J3490; J7030; J7620; 99285-25